=== PATIENT | female | born 1950 | race Caucasian/White ===

== ENCOUNTER 2023-06-20 10:15 | Outpatient (RCR) | payer MEDICARE, BC, SELFPAY | END 2023-10-18 23:59 | disposition home or self-care (01) | PROVIDERS: PCP Family Medicine; Visit Provider Family Medicine | DX: M17.0 Bilateral primary osteoarthritis of knee (principal); M77.8 Other enthesopathies, not elsewhere classified; M25.512 Pain in left shoulder; M25.561 Pain in right knee; M25.562 Pain in left knee; M62.81 Muscle weakness (generalized); Z51.89 Encounter for other specified aftercare | CPT/HCPCS: 97110; 97140; 97161 ==

== ENCOUNTER 2023-10-06 09:03 | Outpatient (CLI) | payer MEDICARE, SELFPAY | END 2023-10-06 09:04 | disposition home or self-care (01) | LOC: NFLDREF 10-23 11:45 | PROVIDERS: PCP Family Medicine; Referring Provider Family Medicine; Visit Provider Family Medicine | DX: N39.0 Urinary tract infection, site not specified (principal); N30.00 Acute cystitis without hematuria; K59.00 Constipation, unspecified | CPT/HCPCS: 87086; 87186 ==

== ENCOUNTER 2023-12-17 08:50 | Outpatient (CLI) | payer MEDICARE, BC, SELFPAY | END 2023-12-17 08:51 | disposition home or self-care (01) | LOC: CT 08:51 | PROVIDERS: PCP Family Medicine; Visit Provider Orthopaedic Surgery Sports Medicine | DX: M17.11 Unilateral primary osteoarthritis, right knee (principal); Z01.818 Encounter for other preprocedural examination | CPT/HCPCS: 73700 ==

== ENCOUNTER 2024-01-26 17:02 | Emergency (ER) | payer MEDICARE, BC, SELFPAY ==
[2024-01-26 17:10] VITALS: BP 159/77; PULSE 79; RESP 18; TEMP 36.8; O2SAT 98; BMI 24.2
[2024-01-26 17:32] LABS: Appearance Urine Clear (Clear); Bilirubin Urine Negative (Negative); Blood Urine Trace-lysed (Negative); Color Urine Yellow (Yellow); Glucose Urine Negative (Negative); Ketones Urine Negative (Negative); Leukocyte Esterase Urine 1+ (Negative); Nitrite Urine Negative (Negative); Protein Urine Negative (Negative); Urobilinogen Urine 0.2 (0.2-1.0); pH Urine 6.5 (5.0-8.5)
[2024-01-26 17:35] LABS: RBC Urine 0-2 (0-2); WBC Urine 25-50 (0-5)
--- NOTE | 2024-01-26 17:40 | ED.GENADULT ---
HPI - General Adult General Chief complaint: Abdominal Pain Stated complaint: UTI since September, really hard right now Time Seen by Provider: 01/26/24 17:17 Source: patient Mode of arrival: ambulatory Limitations: no limitations History of Present Illness HPI narrative: 73-year-old female coming in today complaining of vaginal burning of suprapubic pain associated with chronic UTI. Patient states that she has been dealing with a UTI since September. She has been worked up by Urology, had a CT urogram that showed thickening of the bladder wall and a cystoscopy which showed cystitis and couple of ulcers inside the bladder. She has been treated with multiple antibiotics, most recently she is on daily Keflex. Last night the pain became so bad that she could not sleep she came in today for evaluation. She denies any fevers or chills. She states that the vaginal area is very itchy and uncomfortable. She has tried estrogen cream in the past but cannot tolerate it because it causes significant burning. No nausea or vomiting. She does have constipation on and off and when she becomes constipated her pain does worsen. She does take MiraLax as needed. She had a loose bowel movement today and felt that some of her symptoms did resolve but she still fairly uncomfortable. She is also concerned because she feels like she has to urinate every 15 minutes. She is concerned that the antibiotic she is taking is not sufficient. Related Data Home Medications ?Medication ?Instructions ?Recorded ?Confirmed atorvastatin 20 mg tablet 20 mg PO QDAY 04/27/22 10/06/23 cholecalciferol (vitamin D3) PO 03/09/23 10/06/23 multivitamin 1 tab PO QAM 03/09/23 10/06/23 alendronate 70 mg tablet 70 mg PO 09/11/23 10/06/23 aspirin 81 mg tablet,delayed 81 mg PO QDAY 09/11/23 10/06/23 release lisinopril 20 mg tablet 20 mg PO DAILY 09/11/23 10/06/23 omeprazole 40 mg capsule,delayed 40 mg PO DAILY 09/11/23 10/06/23 release desonide 0.05 % topical cream 1 applic topical BID 10/06/23 10/06/23 fluocinonide 0.05 % topical topical 10/06/23 10/06/23 solution [id number] tab PO 10/06/23 10/06/23 fumarate 18 mg-folic acid 400 mcg tablet (One-A-Day Women's Complete) omeprazole 40 mg capsule,delayed 40 mg PO QDAY 10/06/23 10/06/23 release Previous Rx's ?Medication ?Instructions ?Recorded nitrofurantoin 100 mg PO Q12H 5 days #9 caps 01/26/24 monohydrate/macrocrystals 100 mg capsule (Macrobid) Allergies Allergy/AdvReac Type Severity Reaction Status Date / Time No Known Drug Allergies Allergy Verified 01/26/24 17:10 Review of Systems Status of ROS: Reports: 10 or more systems reviewed and unremarkable except as noted in History and below [facility] Surgical History Previous section ?Z98.891 - History of uterine scar from previous surgery (ICD-10) History of open reduction and internal fixation (ORIF) procedure (~1975) ?Z98.890 - Other specified postprocedural states (ICD-10) S/P ORIF (open reduction internal fixation) fracture ?Z98.890 - Other specified postprocedural states (ICD-10) ?Z87.81 - Personal history of (healed) traumatic fracture (ICD-10) Social History Narrative: -Jonnie Smoking Status: Never smoker Do you use any of these nicotine containing products: None Second hand tobacco smoke exposure: No Non-prescribed substance use: denies use Exam Narrative: Exam Narrative: Well-nourished well-developed patient in no acute distress. Alert and oriented. Answers questions appropriately. Mood and affect are appropriate. Thoughts are goal oriented and rational. No tangential or magical thinking noted. Patient speaks in full sentences without needing to catch her breath. Patient does not appear ill or toxic, she is well groomed. HEENT: Normocephalic atraumatic. Pupils are equally round reactive to light. Extraocular muscles are intact. Conjunctivae are moist without any icterus noted. Moist mucous membranes. Cardiovascular: Heart is regular rate and rhythm S1 and S2 are present without any murmurs. Lungs: Clear to auscultation bilaterally no wheezes rhonchi or rales are appreciated. Patient takes deep breaths without any discomfort. Abdomen: Soft and nontender nondistended with normal bowel sounds. No guarding or rebound. No masses or organomegaly appreciated. : Normal female external genitalia. She does not have evidence of atrophic vaginitis or significant dryness noted. There is no vaginal discharge noted. With no swelling or erythema of the perineum. Const: Vital Signs, click to edit/add: Vital Signs - 24 hr 01/26/24 17:10 Temperature 98.3 F Pulse Rate [Pulse Oximeter] 79 Respiratory Rate 18 Blood Pressure [Ri ght Upper Arm] 159/77 H Pulse Oximetry 98 Oxygen Delivery Me thod Room Air Course Course ED Course: CBC is unremarkable. Urinalysis she shows 25-50 wbc's and 1+ leukocyte esterase. TRENT is negative for Trichomonas, yeast or clue cells. Sodium is a little low of 131. Chemistries are otherwise unremarkable. Normal CRP Vital Signs Vital signs: Initial Vital Signs Temperature 98.3 F 01/26/24 17:10 Temperature Source Temporal Artery Scan 01/26/24 17:10 Pulse Rate 79 01/26/24 17:10 Pulse Rhythm Regular 01/26/24 17:10 Respiratory Rate 18 01/26/24 17:10 Blood Pressure 159/77 H 01/26/24 17:10 Blood Pressure Mean 104 01/26/24 17:10 Blood Pressure Position Sitting 01/26/24 17:10 Pulse Oximetry 98 01/26/24 17:10 Oxygen Delivery Method Room Air 01/26/24 17:10 Vital Signs Temperature 98.3 F 01/26/24 17:10 Pulse Rate 79 01/26/24 17:10 Respiratory Rate 18 01/26/24 17:10 Blood Pressure 159/77 H 01/26/24 17:10 Pulse Oximetry 98 01/26/24 17:10 Oxygen Delivery Method Room Air 01/26/24 17:10 Temperature 98.3 F 01/26/24 17:10 Pulse Rate 79 01/26/24 17:10 Respiratory Rate 18 01/26/24 17:10 Blood Pressure 159/77 H 01/26/24 17:10 Pulse Oximetry 98 01/26/24 17:10 Oxygen Delivery Method Room Air 01/26/24 17:10 Medical Decision Making MDM Narrative Medical decision making narrative: 73-year-old female with chronic cystitis coming in today with an episode of increased discomfort and worsening urinary frequency. UA is abnormal. At this time going to put her on Macrobid twice a day for 5 days, continue Keflex as is. Follow up with Urology team next week. Lab Data Lab results reviewed: Yes I reviewed the patient's lab results Labs: Lab Results 01/26/24 01/26/24 01/26/24 Range/Units 17:21 17:50 18:10 WBC 6.16 (4.50-11.00) K/uL RBC 4.63 (4.00-5.20) m/uL Hgb 13.4 (12.0-16.0) gm/dL Hct 40.8 (33.0-51.0) % MCV 88 (80-100) fL MCH 29 (26-34) pg MCHC 33 (32-36) gm/dL RDW Coeff of Jessie 12.3 (11.5-15.5) % Plt Count 298 (140-440) K/uL Neut % (Auto) 63.2 (42.0-72.0) % Lymph % (Auto) 22.4 (20-44) % [place] % (Auto) 10.1 (0.0-11.0) % Eos % (Auto) 3.6 (0.0-7.0) % Baso % (Auto) 0.5 (0.0-3.0) % Neut # (Auto) 3.90 (1.7-7.0) K/uL Lymph # (Auto) 1.38 (0.90-2.90) K/uL [place] # (Auto) 0.60 (0.00-0.90) K/UL Eos # (Auto) 0.22 (0.00-0.50) K/uL Baso # (Auto) 0.03 (0.00-0.30) K/uL Abs Immat Gran (auto) 0.01 (0.00-0.30) K/uL Imm/Tot Granulo (auto) 0.2 % Sodium 131 L (135-149) mmol/L Potassium 4.7 (3.6-5.1) mmol/L Chloride 96 (96-114) mmol/L Carbon Dioxide 30 (20-32) mmol/L Anion Gap 5 L (7-15) mEq/L BUN 19 (7-30) mg/dL Creatinine 0.7 (0.5-1.5) mg/dL Estimated Creat Clear 35.99 Estimated GFR 91 ml/min Glucose 104 (60-115) mg/dL Calcium 9.4 (8.4-10.6) mg/dL C-Reactive Protein 0.5 (0.5-1.0) mg/dL Urine Color Yellow (Yellow) Urine Appearance Clear (Clear) Urine pH 6.5 (5.0-8.5) Ur Specific [place] 1.010 (1.000-1.030) Urine Protein Negative (Negative) Urine Glucose (UA) Negative (Negative) Urine Ketones Negative (Negative) Urine Blood Trace-lysed A (Negative) Urine Nitrite Negative (Negative) Urine Bilirubin Negative (Negative) Urine Urobilinogen 0.2 (0.2-1.0) Ur Leukocyte Esterase 1+ A (Negative) Urine RBC 0-2 (0-2) Urine WBC 25-50 A (0-5) Ur Squamous Epith Cells None (None-Few) Urine Bacteria None (None) Vaginal Trichomonas (None Seen) Vaginal Yeast (None Seen) Vaginal Clue Cells (None Seen) Vaginal Bacterial Vaginosis Negative (Negative) Vaginal Cecilia species NOT DETECTED (No Detected) Vag C. glabrata/krusei NOT DETECTED (No Detected) Vag T. vaginalis NOT DETECTED (No Detected) 01/26/24 Range/Units 18:15 WBC (4.50-11.00) K/uL RBC (4.00-5.20) m/uL Hgb (12.0-16.0) gm/dL Hct (33.0-51.0) % MCV (80-100) fL MCH (26-34) pg MCHC (32-36) gm/dL RDW Coeff of Jessie (11.5-15.5) % Plt Count (140-440) K/uL Neut % (Auto) (42.0-72.0) % Lymph % (Auto) (20-44) % [place] % (Auto) (0.0-11.0) % Eos % (Auto) (0.0-7.0) % Baso % (Auto) (0.0-3.0) % Neut # (Auto) (1.7-7.0) K/uL Lymph # (Auto) (0.90-2.90) K/uL [place] # (Auto) (0.00-0.90) K/UL Eos # (Auto) (0.00-0.50) K/uL Baso # (Auto) (0.00-0.30) K/uL Abs Immat Gran (auto) (0.00-0.30) K/uL Imm/Tot Granulo (auto) % Sodium (135-149) mmol/L Potassium (3.6-5.1) mmol/L Chloride (96-114) mmol/L Carbon Dioxide (20-32) mmol/L Anion Gap (7-15) mEq/L BUN (7-30) mg/dL Creatinine (0.5-1.5) mg/dL Estimated Creat Clear Estimated GFR ml/min Glucose (60-115) mg/dL Calcium (8.4-10.6) mg/dL C-Reactive Protein (0.5-1.0) mg/dL Urine Color (Yellow) Urine Appearance (Clear) Urine pH (5.0-8.5) Ur Specific [place] (1.000-1.030) Urine Protein (Negative) Urine Glucose (UA) (Negative) Urine Ketones (Negative) Urine Blood (Negative) Urine Nitrite (Negative) Urine Bilirubin (Negative) Urine Urobilinogen (0.2-1.0) Ur Leukocyte Esterase (Negative) Urine RBC (0-2) Urine WBC (0-5) Ur Squamous Epith Cells (None-Few) Urine Bacteria (None) Vaginal Trichomonas No Trichomonas Seen (None Seen) Vaginal Yeast No Yeast Seen (None Seen) Vaginal Clue Cells No Clue Cells Seen (None Seen) Vaginal Bacterial Vaginosis (Negative) Vaginal Cecilia species (No Detected) Vag C. glabrata/krusei (No Detected) Vag T. vaginalis (No Detected) Discharge Plan Discharge Clinical Impression: Chronic cystitis, Acute UTI Patient Disposition: Home, Self-Care Condition: Stable Additional Instructions: Given your worsening symptoms who had treat with a different antibiotic twice a day for the next 5 days to see if this helps. Continue Keflex as you are currently taking it. You do need to follow-up with your primary care team or urologist next week. While reading through your medical paperwork I did notice that you had an abnormality noted of your lungs that was noted on the CT scan you had of the abdomen. Just wanted make sure that you bring this up to your primary care provider to see if you need to have any follow-up regarding this. Return to the ER if you develop vomiting, weakness or fever. Prescriptions: New nitrofurantoin monohyd/m-cryst [Macrobid] 100 mg capsule 100 mg PO Q12H 5 Days Qty: 9 0RF Rx Instructions: must administer with a meal/food No Action lisinopril 20 mg tablet 20 mg PO DAILY omeprazole 40 mg capsule,delayed release(DR/EC) 40 mg PO DAILY alendronate 70 mg tablet 70 mg PO aspirin 81 mg tablet,delayed release (DR/EC) 81 mg PO QDAY desonide 0.05 % cream 1 applic topical BID fluocinonide 0.05 % solution topical omeprazole 40 mg capsule,delayed release(DR/EC) 40 mg PO QDAY One-A-Day Women's Complete 18 mg iron- 400 mcg tablet PO atorvastatin 20 mg tablet 20 mg PO QDAY multivitamin Tablet 1 tab PO QAM cholecalciferol (vitamin D3) PO Follow Up/Referrals: Agnes Tejeda MD [Primary Care Provider] - Stand Alone Forms: Real Time [facility] Info Instructions
--- OUTSIDE RECORDS SUMMARY | 2024-01-26 17:45 | XMS_ITS | Clinical Summary ---
Author Organization [employer] Address [place], [place] [address] Care Team Providers Care Eyeglass Lens Grinder Name Role Phone MottSangeethaNathanruben Blanchard [phone] Agnes Tejeda MD Primary Care Provider Allergies No known active allergies Medications Medication Sig Dispensed Refills Start Date End Date Status aspirin (ECOTRIN) 81 mg enteric coated tablet Take 1 tablet by mouth once daily with a meal. 100 tablet PRN 4 Active gehxkgmi-rqvq-OH-c alcium-mins (ONE-A-DAY WOMEN'S PETITES) 9 mg iron-200 mcg tab Take 2 tablets by mouth once daily. 0 6 Active desonide 0.05% (TRIDESILON 0.05% CREAM) 0.05 % creamIndications:E czema, unspecified type Apply topically to affected area(s) 2 times daily. 1 Tube 7 Active cholecalciferol (Vitamin D) 1,000 unit tablet Take 1,000 units by mouth once daily. Active fluocinonide 0.05 TOPICAL (LIDEX) 0.05 % external solutionIndication s:Scalp psoriasis Apply topically to affected area(s) two times daily. Use up to 2 weeks at a time. 60 mL 2 3 Active lisinopriL (PRINIVIL; ZESTRIL) 20 mg tabletIndications: HTN (hypertension) Take 1 Tablet (20 mg) by mouth once daily. 90 Tablet 3 3 Active durable medical equipment (DME)Indications:H TN (hypertension) Automated home BP cuff. Length of need 99 1 Each 3 Active omeprazole (PRILOSEC) 40 mg Delayed-Release capsuleIndications :Dysphagia, unspecified type,Esophagitis,H iatal hernia TAKE ONE CAPSULE BY MOUTH ONCE DAILY. TAKE 30-60 MINUTES BEFORE A MEAL. 90 Capsule 3 4 Active ketoconazole 2 % creamIndications:I ntertrigo Apply topically to affected area(s) two times daily. 60 g 4 Active alendronate (FOSAMAX) 70 mg tabletIndications: Age-related osteoporosis without current pathological fracture TAKE 1 TABLET BY MOUTH ONCE A WEEK IN THE MORNING. - TAKE ON AN EMPTY STOMACH WITH FULL GLASS OF WATER. DO NOT LIE DOWN FOR 1 HOUR. 4 Tablet 4 Active atorvastatin (LIPITOR) 20 mg tabletIndications: Hyperlipidemia, unspecified hyperlipidemia type TAKE ONE TABLET BY MOUTH EVERY DAY 90 Tablet 3 4 Active cephalexin (KEFLEX) 500 mg capsule Take 500 mg by mouth. Take one capsule once daily for 45 days 4 Active atorvastatin (Lipitor) 20 mg tabletIndications: Hyperlipidemia, unspecified hyperlipidemia type Take 1 Tablet (20 mg) by mouth once daily. 90 Tablet 3 3 01/21/20 24 Discontinued alendronate (FOSAMAX) 70 mg tabletIndications: Age-related osteoporosis without current pathological fracture Take 1 Tablet (70 mg) by mouth once a week in the morning. Take on empty stomach with full glass of water. Do not lie down for 1 hr. 12 Tablet 3 3 01/15/20 24 Discontinued estradioL (ESTRACE) 0.01% (0.1 mg/g) vaginal creamIndications:R ecurrent cystitis,Post-emy pausal atrophic vaginitis Insert 1 g into the vagina at bedtime for 14 days. Then use at bedtime 2 days per week. 42.5 g 1 4 01/21/20 24 Discontinued(*Pa tient states no longer taking) Active Problems Problem Noted Date Diagnosed Date Gastroesophageal reflux dise ase with esophagitis without hemorrhage 06/13/2022 Overview (06/13/2022): EGD 05/2021 esophagitis Eczema 02/12/2013 HTN (hypertension) 11/08/2011 Screen for colon cancer 12/08/2009 Overview (11/19/2019): Colonoscopy 11/2009 normal repeat in 10 years Colonoscopy 10/2019 normal, repeat in 10 years Other and unspecified hyperlipidemia 10/10/2006 Resolved Problems Problem Noted Date Diagnosed Date Resolved Date Closed fibular fracture 12/28/201112/29 Encounters Date Type Department Care Team Description 01/23/2024 Travel 01/21/2024 8:15 AM CDT Preop Visit [facility] [address] [place] [address] Agnes Tejeda MD [facility] Exam [facility] 01/21/2024 Travel 01/18/2024 Refill [facility] [address] [place] [address] Agnes Tejeda MD Refill Request (Atorvastatin) 01/12/2024 Refill [facility] [address] [place] [address] Agnes Tejeda MD Refill Request (Alendronate) 01/04/2024 Telephone [facility] [address] [place] [address] Agnes Tejeda MD Follow Up 01/01/2024 Orders Only [facility] Scanner 1 scan: (1-Ord) [place] [facility], CYSTOSCOPY, 01/01/2024 01/01/2024 Orders Only [facility] Scanner 1 scan: (1-Ord) UNKNOWN FACILITY, URINALYSIS, 01/01/2024 01/01/2024 Orders Only [facility] Scanner 1 scan: (1-Ord) [place] [facility], URINE CULTURE, 01/01/2024 01/01/2024 Telephone [facility] [address] [place] [address] Agnes Tejeda MD Appointment (preop) 11/28/2023 9:05 AM CDT Office Visit [facility] [address] [place] [address] Alison Quintana PA Follow Up (Urinary problems); Derm Problem (redness on abdomen/right groin) 11/28/2023 Travel 11/21/2023 9:05 AM CDT Office Visit [facility] [address] [place] [address] Alison Quintana PA Follow Up (urinary problems- sleeping at night has been difficult due to pain in lower abdomen/ pelvic area ) 11/20/2023 Travel 11/20/2023 Telephone [facility] [address] [facility] [place] [address] Alison Quintana PA Medication Management (UTI Medication not working.) 11/08/2023 Telephone [facility] [address] [place] [address] Agnes Tejeda MD 11/07/2023 3:00 PM CDT Ancillary Procedure [address] [address] 11/07/2023 2:45 PM CDT Orders Only [address] [address] Lab, [place] 11/07/2023 Travel 11/02/2023 9:05 AM CDT Office Visit [address] [address] Alison Quintana PA Follow Up (Vaginal concerns - pressure- bowel movement will help relieve pressure, still having urgency ) 11/02/2023 Travel 10/31/2023 Travel 10/26/2023 Telephone [facility] [address] [place] [address] Alison Quintana PA from Last 3 Months Immunizations Name Administration Dates Next Due COVID-19 VACCINE SPIKEVAX (M ODERNA 50MCG/0.5ML) 12YO+ PFS 02/12/2023 COVID-19 vaccine (Moderna 50mcg/0.5mL) 12YO+ BIVALENT PF, MDV 01/25/2022 Influenza Virus, Unspecified 01/29/2019 Influenza, High-dose Inactivated 03/05/2018,02/28,05/17/2016 Influenza, IIV3 (Age >=3 years) 02/22/2012,02/07,02/08/2010 Influenza, IIV4 01/30/2013 Influenza, Inactivated AIIV4 (Age 65+ Years) Preserv Free 02/02/2023,01/25/2022,01/19/2021,2019 Influenza, Inactivated IIV3 (Age 65+ Years) Preserv Free 01/18/2024 Pneumococcal Poly,23-Valent (Pneumovax) 11/29/2016 Pneumococcal conj 13-Valent (Prevnar 13) 11/23/2015 Td (Age >=7 Years) 04/29/2003 Tdap 08/14/2022,11/08/2011 Zoster (Shingrix-RZV, recombinant) 06/25/2019, Zoster (Zostavax-ZVL, live) 11/01/2010 Family History Medical History Relation Name Comments Cirrhosis Brother Heart Disease Brother pacemaker Heart Disease Father OR Hypertension Father Other Maternal Aunt Alzheimer's de mentia Arthritis Mother Hypertension Mother Stroke Mother Thyroid Disease Mother Diabetes Other 1 Grandfather Cancer-breast Other 2 cousin diagnos ed at 40 Cancer-breast Paternal Aunt x2 Cancer-ovarian No Family History Relation Name Status Comments Brother Father (Age 62) Maternal Aunt Mother (Age 91) stroke Other 1 Other 2 Paternal Aunt Social History Tobacco Use Types Packs/Day Years Used Date Smoking Tobacco: Never Smokeless Tobacco: Never Tobacco Cessation:Counseling Given: No Alcohol Use Standard Drinks/Week Comments Yes 0 (1 standard drink = 0.6 oz pur e alcohol) very seldom PHQ-2 Answer Date Recorded PHQ-2 TOTAL SCORE 0 02/19/2023 Social Connections Answer Date Recorded Frequency of Communication with Friends and Fami ly 0 02/19/2023 Financial Resource Strain Answer Date R ecorded Difficulty of Paying Living Expenses 3 02/19/2023 Difficulty of Paying Living Expenses Not on file 02/19/2023 Food Insecurity Answer Date Recorded Worried About Running Out of Food in the Last Ye ar 1 02/19/2023 Transportation Needs Answer Date Record ed Lack of Transportation (Medical) 1 02/19/2023 Housing Stability Answer Date Recorded Unable to Pay for Housing in the Last Year 1 02/19/2023 Sex and Gender Information Value Date Recorded Sex Assigned at Not on file Gender Identity Not on file Sexual Orientation Not on file Obstetrics History Para Term AB IAB SAB Ectopic Multiple Livin g Live Births 3 2 2 1 1 0 0 Date Outcome GA Total Labor Labor/2nd/3rd Weight Sex Type Anes PTL Keerthi A1 A5 Name Clin SAB Term Term Last Filed Vital Signs Vital Sign Reading Time Taken Comments Blood Pressure 121/83 01/21/2024 8:11 AM CDT Pulse 77 01/21/2024 8:11 AM CDT Temperature 36.4 ??C (97.5 ??F) 08/02/2017 2:49 PM CD T Respiratory Rate 14 06/08/2022 9:45 AM [employer]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 Oxygen Saturation 98% 01/21/2024 8:11 AM CDT Inhaled Oxygen Concentration - - Weight 56.3 kg (124 lb 3.2 oz) 01/21/2024 8:11 A M CDT Height 151.5 cm (4' 11.65) 01/21/2024 8:11 AM C DT Body Mass Index 24.54 01/21/2024 8:11 AM CDT Plan of Treatment Upcoming Encounters Date Type Department Care Team (Late st Contact Info) Description 01/28/2024 10:40 AM CDT Ancillary Procedure [facility] [address] [place] [address] 02/21/2024 8:00 AM CDT Office Visit [facility] [address] [place] [address] Agnes Tejeda MD [address] [place] [address] Health Maintenance Due Date Last Done Comments Mammogram for age 45-75 01/25/2024 01/25/20, 01/20/2022, 01/19/2021, Additional history exists Depression screening for age 12+ 02/20/2024 02/19/2023, 01/20/2022, 01/20/2022, Additional history exists Medicare Wellness for age 65+ 02/20/2024, 01/20/2022, 01/19/2021, Additional history exists BMI (ht and wt on same day) for age 18+ 01/20/2025 01/21/2024, 02/19/2023, 05/29/2022, Additional history exists Lipids for age 45-75 01/20/2029 01/21/2024, 01/24/2023, 01/20/2022, Additional history exists Colonoscopy through age 75 11/18/202911/18, 11/19/2019, 12/08/2009, Additional history exists Tetanus booster 08/14/2032 08/14/2022, 10/28, 04/29/2003 Hepatitis C screening for ag e 18-79 Completed 04/29/2003 Pneumococcal series for age 65+ Completed 7, 11/23/2015 Zoster (shingles) series for age 50+ Completed 06/25/2019, 01/29/2019, 11/01/2010 DEXA/DXA scan for age 65+ Completed 2021, 11/30/2016, 11/12/2012 Tdap Completed 08/14/2022, 11/08/2011 COVID-19 vaccine series Completed 01/10/20 24, 02/12/2023, 08/14/2022, Additional history exists Influenza for age 65+ Completed 01/18/2024 , 02/02/2023, 01/25/2022, Additional history exists Procedures Procedure Name Priority Date/Time Associated Diagnosis Comments EKG 12 LEAD UNIT PERFORMED Routine 01/21/2024 10:40 AM CDT Preop examination ID READING EKG - NO CHARGE, COMP ONLY Routine 01/21/2024 10:39 AM CDT Preop examination HEMOGLOBIN Routine 01/21/2024 9:33 AM CDT Preop examination LIPID PANEL W REFLEX MEASURED LDL Routine 01/21/2024 9:33 AM CDT Hyperlipidemia, unspecified hyperlipidemia type BASIC METABOLIC PANEL Routine 01/21/2024 9:33 AM CDT HTN (hypertension) SCAN-LABORATORY REPORT 01/01/2024 12:00 AM CDT SCAN-PATHOLOGY REPORT 01/01/2024 12:00 AM CDT SCAN-OPERATIVE/PROC EDURE REPORT 01/01/2024 12:[address] ABDOMEN PELVIS UROGRAM WWO LUISITO 11/07/2023 3:45 PM CDT Urgency incontinence Urinary frequency Microscopic hematuria CREATININE,ISTAT Routine 11/07/2023 3:05 PM CDT Observation or evaluation for suspected condition TRICHOMONAS, JENNIE, AND BACTERIAL VAGINOSIS BY JENNIFER Routine 11/02/2023 9:40 AM CDT Urgency incontinence Urinary frequency Vaginal itching URINALYSIS MICROSCOPIC Routine 11/02/2023 9:07 AM CDT Urgency incontinence UA W/ SEDIMENT EXAM REFLEXED PER CRITERIA Routine 11/02/2023 9:07 AM CDT Urgency incontinence XR MAMMO KAYLENE BILAT SCREEN Routine 01/24/2023 8:03 AM CDT Visit for screening mammogram XR DXA BONE DENSITY 2 SITES AXIAL Routine 01/24/2022 9:57 AM CDT Menopause COLONOSCOPY 11/19/2019 7:34 AM CDT ANTI HCV Routine 04/29/2003 10:14 AM [employer]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 from Last 3 Months or Most Recently Relevant to Health Maintenance Results * EKG 12 LEAD UNIT PERFORMED (01/21/2024 10:40 AM CDT) Agnes Tejeda MD EKG ORD * ID READING EKG - NO CHARGE, COMP ONLY (01/21/2024 10:39 AM CDT) Agnes Teejda MD PB - PROVIDER R EADINGS * (ABNORMAL) LIPID PANEL W REFLEX MEASURED LDL (01/21/2024 9:33 AM CDT) CHOLESTEROL, TOTAL 206(H) <200 mg/dL [facility] HDL CHOLESTEROL 71 > OR = 50 mg/dL [facility] TRIGLYCERIDES 141 <150 mg/dL [facility] LDL-CHOLESTEROL 110(H) mg/dL (calc) [facility] Comment: Reference range: <100 Desirable range <100 mg/dL for primary prevention; ?? <70 mg/dL for patients with CHD or diabetic patients with > or = 2 CHD risk factors. LDL-C is now calculated using the Marquise calculation, which is a validated novel method providing better accuracy than the Friedewald equation in the estimation of LDL-C. Evert SS et al. MORIAH. 2013;310(19): 3779-1268 (http://education.Dish.fm/faq/OSE830) CHOL/HDLC RATIO 2.9 <5.0 (calc) [facility] NON HDL CHOLESTEROL 135(H) <130 mg/dL (calc) [facility] Comment: For patients with diabetes plus 1 major ASCVD risk factor, treating to a non-HDL-C goal of <100 mg/dL (LDL-C of <70 mg/dL) is considered a therapeutic option. Blood BLOOD SPECIMEN / Unknown 01/21/2024 9:33 AM CDT 01/21/2024 9:34 AM CDT Agnes Tejeda MD CHEMISTRY [employer] [facility] [address] [place] [address], [facility] [address] [place] [address] * HEMOGLOBIN (01/21/2024 9:33 AM CDT) Pathologist [facility] HEMOGLOBIN 14.8 11.7 - 15.5 g/dL [facility] Blood BLOOD SPECIMEN / Unknown 01/21/2024 9:33 AM CDT 01/21/2024 9:34 AM CDT Agnes Tejeda MD HEMATOLOGY Performing Organization Address City/[facility]/ZIP Co de Phone Number [email or web address] [email or web address] [facility] [address] [place] [address], [place] [phone] [facility] [address] [place] [address] * BASIC METABOLIC PANEL (01/21/2024 9:33 AM CDT) GLUCOSE 89 65 - 99 mg/dL [facility] Comment: ? Fasting reference interval UREA NITROGEN (BUN) 19 7 - 25 mg/dL [facility] CREATININE 0.71 0.60 - 1.00 mg/dL [facility] EGFR 90 > OR = 60 mL/min/1. 73m2 [facility] BUN/CREATININE RATIO SEE NOTE: 6 - 22 (calc) [facility] Comment: ?? Not Reported: BUN and Creatinine are within ?? reference range. ? SODIUM 138 135 - 146 mmol/L [facility] POTASSIUM 4.7 3.5 - 5.3 mmol/L [facility] CHLORIDE 100 98 - 110 mmol/L [facility] CARBON DIOXIDE 23 20 - 32 mmol/L [facility] ELECTROLYTE BALANCE 15 7 - 17 mmol/L (calc) [facility] CALCIUM 9.8 8.6 - 10.4 mg/dL [facility] Blood BLOOD SPECIMEN / Unknown 01/21/2024 9:33 AM CDT 01/21/2024 9:34 AM CDT Agnes Tejeda MD CHEMISTRY [employer] [facility] [address] [place] [address], [place] [phone] [facility] [address] [place] [address] * SCAN-OPERATIVE/PROCEDURE REPORT (01/01/2024 12:00 AM CDT) Scanner OTHER * SCAN-PATHOLOGY REPORT (01/01/2024 12:00 AM CDT) Scanner OTHER * SCAN-LABORATORY REPORT (01/01/2024 12:00 AM CDT) Scanner OTHER * CT ABDOMEN PELVIS UROGRAM WWO (11/07/2023 3:45 PM CDT) Anatomical Region Laterality Modality Abdomen, Pelvis, KIDNEYS, BLADDER Computed Tomography 11/08/2023 2:46 AM CDT Impressions 11/08/2023 2:46 AM CDT 1. Irregular urinary bladder wall thickening, nonspecific but may be seen the setting of cystitis. 2. Moderate pelvocaliectasis versus extrarenal pelvis bilaterally. 3. Left nonobstructive nephrolithiasis. 4. Right lower lobe patchy ground-glass opacities, likely representing infectious/inflammatory process. Please note that all CT scans at this facility use dose modulation, iterative reconstruction, and/or weight-based dosing when appropriate to reduce radiation dose to as low as reasonably achievable. Dictated by Donell Cote MD @ 11/08/2023 2:46:20 AM (Electronically Signed) Narrative 11/08/2023 2:46 AM CDT For Patients: ??As a result of the 21st Century Cures Act, medical imaging exams and procedure reports are released immediately into your electronic medical record. ??You may view this report before your referring provider. ??If you have questions, please contact your health care provider. INDICATION: Hematuria. TECHNIQUE: CT abdomen and pelvis urogram without and with 100 cc Omnipaque 350 IV contrast. Contrast images were obtained in the nephrographic and delayed phases. COMPARISON: None. FINDINGS: Kidneys: The unenhanced images demonstrate small nonobstructive calculi in the left renal lower pole. Left renal cortical scarring with calcifications. Normal uptake and excretion of IV contrast. No masses. Moderate pelvocaliectasis versus extrarenal pelvis bilaterally. No contrast opacification of the ureters. Urinary Bladder: Irregular wall thickening of the urinary bladder. No contrast opacification of the urinary bladder. Other: Right lower lobe patchy ground-glass opacities. Bibasilar atelectasis. Right middle lobe calcified granuloma. Coronary artery calcifications. Liver, gallbladder, spleen, pancreas, and bilateral adrenal glands are unremarkable. Small hiatal hernia. GI tract is normal in caliber. No evidence of obstruction. Normal appendix. No free air or significant free fluid. No adenopathy. No abdominal aortic aneurysm. Calcified uterine fibroid. Degenerative changes of the spine with grade 1 anterolisthesis L4 on L5. Procedure Note Donell Cote MD - 11/08/2023 For Patients: As a result of the Cures Act, medical imagingexams and procedure reports are released immediately into your electronicmedical record. You may view this report before your referring provider.If you have questions, please contact your health care provider. INDICATION: Hematuria. TECHNIQUE: CT abdomen and pelvis urogram without and with 100 cc Omnipaque 350 IVcontrast. Contrast images were obtained in the nephrographic and delayedphases. COMPARISON: None. FINDINGS: Kidneys: The unenhanced images demonstrate small nonobstructive calculi inthe left renal lower pole. Left renal cortical scarring withcalcifications. Normal uptake and excretion of IV contrast. No masses.Moderate pelvocaliectasis versus extrarenal pelvis bilaterally. Nocontrast opacification of the ureters. Urinary Bladder: Irregular wall thickening of the urinary bladder. Nocontrast opacification of the urinary bladder. Other: Right lower lobe patchy ground-glass opacities. Bibasilaratelectasis. Right middle lobe calcified granuloma. Coronary arterycalcifications. Liver, gallbladder, spleen, pancreas, and bilateraladrenal glands are unremarkable. Small hiatal hernia. GI tract is normalin caliber. No evidence of obstruction. Normal appendix. No free air orsignificant free fluid. No adenopathy. No abdominal aortic aneurysm.Calcified uterine fibroid. Degenerative changes of the spine with grade 1anterolisthesis L4 on L5. IMPRESSION: 1. Irregular urinary bladder wall thickening, nonspecific but may be seenthe setting of cystitis. 2. Moderate pelvocaliectasis versus extrarenal pelvis bilaterally. 3. Left nonobstructive nephrolithiasis. 4. Right lower lobe patchy ground-glass opacities, likely representinginfectious/inflammatory process. Please note that all CT scans at this facility use dose modulation,iterative reconstruction, and/or weight-based dosing when appropriate toreduce radiation dose to as low as reasonably achievable. Dictated by Donell Cote MD @ 11/08/2023 2:46:20 AM (Electronically Signed) Alison NUNEZ CT * (ABNORMAL) CREATININE,ISTAT (11/07/2023 3:05 PM CDT) [facility] CREATININE, POCT 0.80 0.57 - 1.11 mg/dL 11/07/2023 3:07 PM CDT [facility] Comment:Caution: Patients ta rob Hydroxyurea have falsely increased iStat Creatinine results. Verify creatinine results ordering a Creatinine (64245.2) eGFR 78(L) >90 mL/min/1.7 3m2 11/07/2023 3:07 PM CDT [facility] Comment:As of 2021, eG FR is calculated by the CKD-EPI creatinine equation without race adjustment. eGFR can be influenced by muscle mass, exercise, and diet. The reported eGFR is an estimation only and is only applicable if the renal function is stable. Blood BLOOD SPECIMEN / Unknown 11/07/2023 3:05 PM CDT 11/07/2023 3:07 PM CDT Alison NUNEZ CHEMISTRY [facility] [address] [place] [address], * TRICHOMONAS, JENNIE, AND BACTERIAL VAGINOSIS BY JENNIFER (11/02/2023 9:40 AM CDT) [facility] JENNIE SPECIES Negative Negative 9:53 PM CDT [facility] JENNIE GLABRATA Negative Negative 11/02/2023 9:53 PM CDT [facility] TRICHOMONAS VVA Negative Negative 9:[address] [facility] BACTERIAL VAGINOSIS Negative Negative 11/02/2023 9:53 PM CDT [facility] Other VAGINAL SWAB / Unknown Non-Blood / Unknown 11/02/2023 9:40 AM CDT 11/02/2023 10:30 AM CDT Alison NUNEZ MICROBIOLOGY [facility] [address] [place] [address], [place] * (ABNORMAL) URINALYSIS MICROSCOPIC (11/02/2023 9:07 AM CDT) RBC 0-2 0-2, None Seen /HPF 11/02/2023 9:23 AM CDT [facility] WBC 11-25(A) 0-2, 3-5, None Seen /HPF 11/02/2023 9:23 AM CDT [facility] BACTERIA Few None Seen, Rare, Few Bacteria/ HPF 11/02/2023 9:23 AM CDT [facility] EPITHELIAL CELLS None Seen None Seen, Few Epi/HPF 11/02/2023 9:23 AM CDT [facility] Urine URINE SPECIMEN / Unknown Non-Blood / Unknown 11/02/2023 9:07 AM CDT 11/02/2023 9:16 AM CDT Narrative [facility] - 11/02/2023 9:23 AM CDT <1.5 ml. ??QNS for accurate microscopic exam. ??Microscopic done on unspun urine. Alison NUNEZ URINE Performing Organization Address City/[facility]/ZIP Co de Phone Number [facility] [address] [place] [address], [place] [phone] * (ABNORMAL) UA W/ SEDIMENT EXAM REFLEXED PER CRITERIA (11/02/2023 9:07 AM CDT) COLOR Yellow Yellow Color 11/02/2023 9:22 AM CDT [facility] CLARITY Clear Clear Clarity 11/02/2023 9:22 AM CDT [facility] SPECIFIC GRAVITY,URINE 1.015 1.010, 1.015, 1.020, 1.025 11/02/2023 9:22 AM CDT [facility] PH,URINE 6.0 6.0, 7.0, 8.0, 5.5, 6.5, 7.5, 8.5 11/02/2023 9:22 AM CDT [facility] UROBILINOGEN, QUALITATIVE Normal Normal EU/dl 11/02/2023 9:22 AM CDT [facility] PROTEIN, URINE Negative Negative mg/dL 11/02/2023 9:22 AM CDT [facility] GLUCOSE, URINE Negative Negative mg/dL 11/02/2023 9:22 AM CDT [facility] KETONES,URINE Negative Negative mg/dL 11/02/2023 9:22 AM CDT [facility] BILIRUBIN,URI NE Negative Negative 11/02/2023 9:22 AM CDT [facility] OCCULT BLOOD,URINE Trace(A) Negative 11/02/2023 9:22 AM CDT [facility] NITRITE Negative Negative 11/02/2023 9:22 AM CDT [facility] LEUKOCYTE ESTERASE Moderate(A) Negative 11/02/2023 9:22 AM CDT [facility] Urine URINE SPECIMEN / Unknown Non-Blood / Unknown 11/02/2023 9:07 AM CDT 11/02/2023 9:16 AM CDT Alison NUNEZ URINE [facility] [address] [place] [address], * XR MAMMO KAYLENE BILAT SCREEN (01/24/2023 8:03 AM CDT) Anatomical Region Laterality Modality BREASTS, Breast Left, Breast Right Bilateral Mammography Impressions 01/24/2023 3:44 PM CDT ??There is no radiographic evidence for malignancy. ??Recommend annual mammograms. MAMMOGRAM ASSESSMENT: ??ACR 1 Negative PATIENTS: You will also receive a letter with your examination results in an easy to read format. ??If you have questions about your results, please contact your referring provider. Narrative 01/24/2023 3:44 PM CDT For Patients: As a result of the Cures Act, medical imaging exams and procedure reports are released immediately into your electronic medical record. You may view this report before your referring provider. If you have questions, please contact your health care provider. XR MAMMO KAYLENE BILAT SCREEN [[id number]] CLINICAL HISTORY: ??This is an asymptomatic 72 y.o. patient. INDICATION FOR EXAM: Mammogram Screening. TECHNIQUE: CC & MLO views were obtained. ??This study was evaluated with the assistance of Computer-Aided Detection. Breast Tomosynthesis was used in interpretation. COMPARISON FILM: Yes 01/20/22 [employer] 01/19/21 [employer] FINDINGS: ??The breasts have scattered areas of fibroglandular density. There are no dominant masses, suspicious micro calcifications or areas of architectural distortion. Agnes Tejeda MD MAMMO * (ABNORMAL) XR DXA BONE DENSITY 2 SITES AXIAL (01/24/2022 9:57 AM CDT) Anatomical Region Laterality Modality Spine, HIPS, HIPL, HIPR Other Impressions 01/26/2022 10:30 AM CDT Osteoporosis. RECOMMENDATIONS: The National Osteoporosis Foundation recommends pharmacologic treatment for patients with T-scores of -2.5 or less, patients with prior history of fragility fractures, or patients with 10-year probability of greater than 3% at hips or greater than 20% of suffering major osteoporotic fractures. Recommend continued optimization of calcium and vitamin D intake through dietary means and/or supplementation and regular exercise. Consider pharmacologic therapy for osteoporosis. Follow-up bone density reading in 2 years if therapy initiated to assess therapeutic efficacy. Genesis Kearney PA-C [employer] [facility] 01/26/2022 Narrative 01/26/2022 10:30 AM CDT For Patients: Results are automatically released to your [employer] account once available, in compliance with federal regulations. This means that you may see your results before your provider has had a chance to review them. Please allow 2-3 business days for your provider to comment on the results. XR DXA Bone Mineral Density (BMD) EXAM LOCATION: [address] [address] PATIENT NAME: Liudmila Dudley DATE OF : 1950 EXAM DATE: 01/24/2022 REQUESTING PROVIDER: Agnes Tejeda MD GENDER AT : female HEIGHT: 5' (01/20/2022) WEIGHT: ??125 lb 9.6 oz (01/20/2022) MENOPAUSAL STATUS: Postmenopausal RACE/ETHNICITY: White RISK FACTORS: Weight < 127 lbs. and White Race CURRENT MEDICATION FOR BONE LOSS: NONE INDICATION: Menopause COMPARISON DATE(S): 2016 DXA scans are compared to prior studies for a patient only when the two (or more) studies were performed on the same scanner. It is not possible to compare data generated on one scanner to data from another because there are not standards in DXA equipment. This applies even if the two scanners are made by the same superintendent nonselling. PROCEDURE: Dual-energy x-ray absorptiometry performed with routine technique. Reporting is completed in the form of a T-score. The T-score represents the standard deviation from peak bone mass based on young healthy adult. A Z-score is used for diagnosis in premenopausal women, and for men under the age of 50. FINDINGs: RESULT LUMBAR SPINE L1-L2 BMD: 0.804 g/cm2 T-Score: - 3.0 Z-Score: - 1.0 Change from prior in 2017: ??Decrease 5.3%. RESULTS FEMUR Left femoral neck BMD: 0.788 g/cm2 T-Score: - 1.8 Z-Score: + 0.1 Change from prior in 2017: ??Decrease 5.5%. Right femoral neck BMD: 0.763 g/cm2 T-Score: - 2.0 Z-Score: - 0.1 Change from prior in 2017: ??Decrease 6.6%. Left hip BMD: 0.897 g/cm2 T-Score: - 0.9 Z-Score: + 0.8 Change from prior in 2017: ??Decrease 6.7%. Right hip BMD: 0.765 g/cm2 T-Score: - 1.9 Z-Score: - 0.2 Change from prior in 2017: ??Decrease 14.7%. WHO criteria: Normal: T-score at or above -1 SD Osteopenia: T-score between -1.1 and -2.4 SD Osteoporosis: T-score at or below -2.5 SD FRAX RISK CALCULATION (USED FOR OSTEOPENIA ONLY): 10-year probability of major osteoporotic fracture: 12.2%. 10-year probability of hip fracture: 2.5%. Agnes Tejeda MD DEXA * COLONOSCOPY (11/19/2019 7:34 AM CDT) 11/19/2019 7:34 AM CDT Narrative Transcriptions Evert Traore MD - 11/19/2019 9:00 AM CDTThis note has been archived and cannot be retrieved at this time. Evert Traore MD PROCEDURE ORD * ANTI HCV (04/29/2003 10:14 AM 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) ANTI HCV Non-reactiv e 04/29/2003 10:1 4 AM 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 Narrative 10/08/2003 2:11 AM CDT Ordered by an unspecified provider. Other Clinical Staff SEND OUTS from Last 3 Months or Most Recently Relevant to Health Maintenance Care Teams Eyeglass Lens Grinder Relationship Specialty Start Date End Date Agnes Tejeda MD [facility] [place] [address] [address] PCP - General Family Practice 12/09/[address] [place], [place] [id number] Appeals Rn 11/23/15
--- OUTSIDE RECORDS SUMMARY | 2024-01-26 17:46 | XMS_ITS | Continuity of Care Document ---
Author Organization [facility], [facility] Address [address] [place] [address] Assessment No assessment recorded. Plan of Treatment Reminders Order Date Submit Date Provider Last Modified By Organization Details Last Modified Time Details Appointments [facility] RTC 2023 11:10A M Not available Not available Not available Lab urinalys is, dipstick 2023 024 [email or web address] [facility], [address], [place], [address], 01/01/2024 11:24:15 Referral None recorded . Procedures None recorded . Surgeries None recorded . Imaging None recorded . Medication Orders cephalex in 500 mg capsule 2023 024 [facility] [address] [place] [address], [id number], 01/01/2024 11:33:04 cephalex in 500 mg capsule 2023 024 [facility] [address] [place] [address], [id number], 01/01/2024 11:33:29 Patient TargetsNo targets recorded. Patient InstructionsNo instructions recorded. Reason for Referral None Reported. Results Created Date Observation Date Name Description Value Unit Range Abnormal Flag Note LastModifiedBy Organization Detail LastModifiedTime 01/01/2001/01/2024 urina lysis , dipst ick BLOOD Large (250 RBC/uL ) Not Available [facility] [address], [place], [address], 01/01/2024 10:36:40 01/01/20 24 01/01/2024 urina lysis , dipst ick BILIRUBIN Negati ve Not Available [facility] [address], [place], [address], 01/01/2024 10:36:40 01/01/20 24 01/01/2024 urina lysis , dipst ick UROBILINOGEN 0.2 mg/dL (Norm) Not Available [facility] [address], [place], [address], 01/01/2024 10:36:40 01/01/20 24 01/01/2024 urina lysis , dipst ick KETONES Negati ve Not Available [facility] [address], [place], [address], 01/01/2024 10:36:40 01/01/20 24 01/01/2024 urina lysis , dipst ick PROTEIN Trace (10 mg/dL) Not Available [facility] [address], [place], [address], 01/01/2024 10:36:40 01/01/20 24 01/01/2024 urina lysis , dipst ick NITRITES Negati ve Not Available [facility] [address], [place], [address], 01/01/2024 10:36:40 01/01/20 24 01/01/2024 urina lysis , dipst ick GLUCOSE Negati ve Not Available [facility] [address], [place], [address], 01/01/2024 10:36:40 01/01/20 24 01/01/2024 urina lysis , dipst ick p.H. 6.0 Not Available [facility] [address], [place], [address], 01/01/2024 10:36:40 01/01/20 24 01/01/2024 urina lysis , dipst ick S.G. (Specific [place]) 1.015 Not Available [facility] [address], [place], [address], 01/01/2024 10:36:40 01/01/20 24 01/01/2024 urina lysis , dipst ick LEUKOCYTES Trace (10 WBC/uL ) Not Available [facility] [address], [place], [address], 01/01/2024 10:36:40 12/27/19 24 11/07/2023 CT, urogr am No observ ation record ed. [email or web address] Not Available 2023 12:29:01 Result Notes None recorded. Procedures Surgical History Date Name Laterality Status Provider Name and Address Organization Details Recorded Time 01/01/20 24 CystoscopyFemale completed Ankita Hernandes MD [address], [place], [address], [facility] 01/01/2024 11:35:58 01/01/20 24 Urinalysis completed [facility] 01/01/2024 10:37:06 01/01/20 24 Bladder Scan completed [facility] 01/01/2024 11:23:46 Imaging Results None recorded. Procedure Notes None recorded. Medical Equipment None Reported. Allergies No known drug allergies Medications Name Sig Start Date Stop Date Status Note LastModified by Organization Details LastModified Time atorvastatin 20 mg tablet active Not Available Not Available Not Available lisinopril 20 mg tablet active Not Available Not Available Not Available alendronate 70 mg tablet active Not Available Not Available Not Available sulfamethoxa zole 800 mg-trimethop rim 160 mg tablet 12/31 completed Not Available Not Available Not Available omeprazole 40 mg capsule,krystyna yed release active Not Available Not Available Not Available cephalexin 500 mg capsule Take 1 capsule every day by oral route. active Not Available Not Available No t Available cefadroxil 1 gram tablet 12/31 completed Not Available Not Available Not Available fluocinonide 0.05 % topical solution active Not Available Not Available Not Available estradiol 0.01% (0.1 mg/gram) vaginal cream 12/31 completed Not Available Not Available Not Available ketoconazole 2 % topical cream 12/31 completed Not Available Not Available Not Available aspirin 81 mg capsule Take 1 capsule every day by oral route. active Not Available Not Available No t Available Vitals Date Recorded Body height Body mass index (BMI) Body weight Provider Name and Address Organization Details Last Updated DateTime 01/01/2024 152.4 cm 24.2 kg/m2 38870.45 g Willis Scherer [facility] 01/01/2024 11:08:38 Social History Question Answer Notes LastModified by Organizat ion Details LastModified Time Tobacco Smoking Status Never Smoker [facility] 01/01/2024 11:11:33 What Is Your Level Of Alcohol Consumption? None [email or web address] Information not available 01/01/2024 What Was The Date Of Your Most Recent Tobacco Screening? 01/01/2024 [email or web address] Information not available 01/01/2024 Sex: Unknown Functional Status None recorded. Mental Status None recorded. Family History Nothing Reported. Medical History Condition Response Sexually Transmitted Infection N Diabetes N Other N Bleeding Disorder N High Blood Pressure Y Kidney Stones Y High Cholesterol Y GERD/Acid Reflux N Heart Disease Y Cancer N Depression N Lung Disease N Gynecological HistoryNo gynecological history recorded. Obstetrics History GPAL:G 0 P 0 0 0 0 Immunizations Vaccine Type Date Status Provider Name and Address Organization Details Recorded Time Influenza, MDCK, quadrivalent, PF 01/29/2019 completed Willis Fajardoch [facility] 01/01/2024 11:07:13 zoster recombinant 06/25/2019 completed Willis Scottyc h kristi, [facility] 01/01/2024 11:07:13 zoster recombinant 01/29/2019 completed Willisaniya Ferrer h [facility] 01/01/2024 11:07:13 Influenza, adjuvanted, quadrivalent, PF 01/16/2020 completed Willis berry [facility] 01/01/2024 11:07:13 Influenza, adjuvanted, quadrivalent, PF 01/19/2021 completed Willis Scherer null, [facility] 01/01/2024 11:07:13 Influenza, adjuvanted, quadrivalent, PF 01/25/2022 completed Willis Scherer null, [facility] 01/01/2024 11:07:13 Influenza, adjuvanted, quadrivalent, PF 02/02/2023 [facility] 01/01/2024 11:07:13 COVID-19, mRNA, LNP-S, PF, 100 mcg/0.5mL dose or 50 mcg/0.25mL dose 07/01/2020 completed Willis Scherer null, [facility] 01/01/2024 11:07:13 COVID-19, mRNA, LNP-S, PF, 100 mcg/0.5mL dose or 50 mcg/0.25mL dose 07/29/2020 completed Willis Scherer null, [facility] 01/01/2024 11:07:13 COVID-19, mRNA, LNP-S, PF, 100 mcg/0.5mL dose or 50 mcg/0.25mL dose 03/09/2021 completed Willis Scherer null, [facility] 01/01/2024 11:07:13 COVID-19, mRNA, LNP-S, bivalent, PF, 50 mcg/0.5 mL or 25mcg/0.25 mL dose 08/14/2022 completed Willis Scherer null, [facility] 01/01/2024 11:07:13 COVID-19, mRNA, LNP-S, bivalent, PF, 50 mcg/0.5 mL or 25mcg/0.25 mL dose 01/25/2022 completed [facility]herer null, [facility] 01/01/2024 11:07:13 COVID-19, mRNA, LNP-S, PF, 50 mcg/0.5 mL 02/12/2023 completed Willis Scherer null, [facility] 01/01/2024 11:07:13 pneumococcal polysaccharide PPV23 11/29/2016 completed Willis Scherer null, [facility] 01/01/2024 11:07:13 Tdap 08/14/2022 completed Willis Scherer null, [facility] 01/01/2024 11:07:13 Tdap 11/08/2011 completed Willis berry, [facility] 01/01/2024 11:07:13 Pneumococcal conjugate PCV 13 11/23/2015 completed Willis berry, [facility] 01/01/2024 11:07:14 zoster live 11/01/2010 completed Willis berry, [facility] 01/01/2024 11:07:14 Influenza, high-dose, trivalent, PF 05/17/2016 completed Willis Scherer null, [facility] 01/01/2024 11:07:14 Influenza, high-dose, trivalent, PF 03/05/2018 completed Willis berry, [facility] 01/01/2024 11:07:14 Influenza, high-dose, trivalent, PF 03/16/2017 completed Willis berry, [facility] 01/01/2024 11:07:14 Influenza, split virus, trivalent, preservative 02/07/2011 completed Willis berry, [facility] 01/01/2024 11:07:14 Influenza, split virus, trivalent, preservative 02/08/2010 completed Willis berry, [facility] 01/01/2024 11:07:14 Influenza, split virus, trivalent, preservative 02/22/2012 [facility] 01/01/2024 11:07:14 Td (adult), 2 Lf tetanus toxoid, preservative free, adsorbed 04/29/2003 completed Willis berry, [facility] 01/01/2024 11:07:14 Influenza, split virus, quadrivalent, PF 01/30/2013 [facility] 01/01/2024 11:07:14 Past Encounters Encounter ID Performer Location Encounter Start Date Encounter Closed Date Diagnosis/Indication Diagnosis SNOMED-CT Code Diagnosis ICD10 Code [id number] Ankita Hernandes MD [facility] [address] [address] 01/01/2024 10:35:14 01/02/2024 12:55:58 Urinary tract infectious disease 77275078 N39.0 Health Concerns Section Related Observation LastModified by Organization Detai ls LastModified Time None Recorded Concern Status LastModified by Organization Details LastModified Time None Recorded Payers Encounter Date Sequence Insurance Name Policy Number Policy Enriquez Covered Member ID Enriquez Member ID Guarantor Name 01/01/2024 1 [employer] [id number] Liudmila Dudley [id number] Liudmila Dudley Notes Date Note Type Note Provider Name and Address Organization Details Recorded Time 01/01/2024 text/html HPI Notes: 73 YO F here for Arnold times 1-2 in one year; with low abdominal pressure/dysuria/ urgency. Patient reports LUTS of: urinary frequency, urgency, pelvic pressure, and vaginal itching since 09/2023. She has urgency to move bowels at night. Ho constipation. NO gross hematuria. Patient was prescribed estrace, but d/c'd as she felt it made sx worse Labs: -Vaginitis panel negative 11/02/23 UC Hx: -10/24/23: no growth- treated with Cephalexin -01/09/23: >100k E.Coli sandoval S Imaging: -11/07/23: CT abdomen/pelvis urogram: irregular bladder wall thickening PMHx includes: Chronic constipation, HTN, GERD PSHx: colonoscopy (10/2019), hernia repair, section UA=blood Cysto- Signs of cystitis throughout bladder with couple of ulcers. Ankita Hernandes MD [address], [place], [address], [facility] [place] [facility] 01/01/2024 11:36:18 OBGyn Episode No OBEpisode recorded.
--- OUTSIDE RECORDS SUMMARY | 2024-01-26 17:46 | XMS_ITS | Data Portability ---
Author Organization [place] [facility] Address [address] [place] [address] Assessment No assessment recorded. Plan of Treatment Reminders Order Date Submit Date Provider Last Modified By Organization Details Last Modified Time Details Appointments [facility] RTC 2023 11:10A M Not available Not available Not available Lab urinalys is, dipstick 2023 024 [facility], [address], [address], 01/01/2024 11:24:15 Referral None recorded . Procedures None recorded . Surgeries None recorded . Imaging None recorded . Medication Orders cephalex in 500 mg capsule 2023 024 [facility] [address] [place] [address], [id number], 01/01/2024 11:33:04 cephalex in 500 mg capsule 2023 024 [facility], [address] [place] [address], [id number], 01/01/2024 11:33:29 Patient TargetsNo targets recorded. Patient InstructionsNo instructions recorded. Reason for Referral None Reported. Results Created Date Observation Date Name Description Value Unit Range Abnormal Flag Note LastModifiedBy Organization Detail LastModifiedTime 01/01/2001/01/2024 URINE CULTU RE final report MICROB IOLOGY RESULT S abnormal SOURC E Void KNOWN ALLER GIES NKDA TREAT MENT See LS appt notes MEDIA PLATE D AT: Media plate d on 024 @ 4:00 PM COLON Y COUNT >100, 000 cfu/m l RESUL T Esche cecy a coli (Isol ate 1) Sensi tivit y Leslee sis Bethesda te 1 ----- ----- ----- ----- ----- ----- ----- - AMOX/ K CLAV <=8/4 *S AMP/S ULBAC CHARLES <=4/2 *S AMPIC ILLIN <=8*S AZTRE ONAM <=4*S CEFAZ LEEANNA <=2*S CEFOX ITIN <=8*S CEFTA ZIDIM E <=1*S CEFTR IAXON E <=1*S CIPRO FLOXA ROBBIN <=0.2 5*S NITRO FURAN TOIN <=32* S PIP/T AZO <=8*S TETRA CYCLI NE <=4*S TRIME TH/MORRISON LFA <=2/3 8*S Orga nisms that are susce ptibl e to tetra cycli ne are gener ally also susce ptibl e to doxyc yclin e and minoc yclin e. Any subst ituti on of drugs which have not been teste d for sensi tivit y shoul d be consi dered based on appro flo usage of the drugs . Infor daniel n on doxyc yclin e and minoc yclin e can be found in the Physi leah' s Desk [facility]. S= Susce ptibl e;I= Inter media te;R= Resis tant; ESBL= Resis tance due to confi rmed ESBL; Suspe cted ESBL= Posit arnav scree marvin only This lab resul t is being provi ded to you and your provi rubia at the same time in compl iance with the Centu ry Cures Act. Your provi rubia may not have had time to revie w and make recom menda tions based on the resul t. Claude e allow up to one week for provi rubia revie w. Not Available [facility] [address] [place] [address] [address], [place], [address], 01/03/2024 08:16:42 01/01/20 24 01/01/2024 urina lysis , dipst ick BLOOD Large (250 RBC/uL ) Not Available [facility] [address], [place], [address], 01/01/2024 10:36:40 01/01/20 24 01/01/2024 urina lysis , dipst ick BILIRUBIN Negati ve Not Available [facility] [address], [place], [address], 01/01/2024 10:36:40 01/01/20 24 01/01/2024 urina lysis , dipst ick UROBILINOGEN 0.2 mg/dL (Norm) Not Available [facility] [address], [place], [address], 01/01/2024 10:36:40 01/01/20 24 01/01/2024 urina lysis , dipst ick KETONES Negati ve Not Available [facility] [address], [place], [address], 01/01/2024 10:36:40 01/01/20 24 01/01/2024 urina lysis , dipst ick PROTEIN Trace (10 mg/dL) Not Available [facility] [address], [place], [address], 01/01/2024 10:36:40 01/01/20 24 01/01/2024 urina lysis , dipst ick NITRITES Negati ve Not Available [facility] [address], [place], [address], 01/01/2024 10:36:40 01/01/20 24 01/01/2024 urina lysis , dipst ick GLUCOSE Negati ve Not Available [facility] [address], [place], [address], 01/01/2024 10:36:40 01/01/20 24 01/01/2024 urina lysis , dipst ick p.H. 6.0 Not Available [facility] [address], [place], [address], 01/01/2024 10:36:40 01/01/20 24 01/01/2024 urina lysis , dipst ick S.G. (Specific [place]) 1.015 Not Available [facility] [address], [place], [address], 01/01/2024 10:36:40 01/01/20 24 01/01/2024 urina lysis , dipst ick LEUKOCYTES Trace (10 WBC/uL ) Not Available [facility] [address], [place], [address], 01/01/2024 10:36:40 12/27/19 24 11/07/2023 CT, urogr am No observ ation record ed. [email or web address] Not Available 2023 12:29:01 Result Notes None recorded. Procedures Surgical History Date Name Laterality Status Provider Name and Address Organization Details Recorded Time 01/01/20 24 CystoscopyFemale completed Ankita Hernandes MD [address], [place], [address], [facility] 01/01/2024 11:35:58 01/01/20 24 Urinalysis completed [facility] 01/01/2024 10:37:06 01/01/20 24 Bladder Scan completed [facility] 01/01/2024 11:23:46 Imaging Results Imaging Date Name Status LastModified by Organiz ation Details LastModified Time 11/07/2023 CT, urogram completed [email or web address] Information n ot available 12/27/2023 12:29:01 Procedure Notes None recorded. Medical Equipment None [...] Updated DateTime 01/01/2024 152.4 cm 24.2 kg/m2 66179.45 g Willis BRANCH [facility] 01/01/2024 11:08:38 Social History Question Answer Notes LastModified by Organizat ion Details LastModified Time Tobacco Smoking Status Never Smoker Willis berry [facility] 01/01/2024 11:11:33 What Is Your Level Of Alcohol Consumption? None [email or web address] Information not available 01/01/2024 What Was The Date Of Your Most Recent Tobacco Screening? 01/01/2024 [email or web address] Information not available 01/01/2024 Sex: Unknown Functional Status None recorded. Mental Status None recorded. Family History Nothing Reported. Medical History Condition Response Other N High Blood Pressure Y Kidney Stones Y Lung Disease N Depression N GERD/Acid Reflux N Diabetes N Sexually Transmitted Infection N Bleeding Disorder N Cancer N High Cholesterol Y Heart Disease Y Gynecological HistoryNo gynecological history recorded. Obstetrics History GPAL:G 0 P 0 0 0 0 Immunizations Vaccine Type Date Status Provider Name and Address Organization Details Recorded Time Influenza, MDCK, quadrivalent, PF 01/29/2019 completed Willis berry [facility] 01/01/2024 11:07:13 zoster recombinant 06/25/2019 completed Willis Finc h null, [facility] 01/01/2024 11:07:13 zoster recombinant 01/29/2019 completed Willis Finc h null, [facility] 01/01/2024 11:07:13 Influenza, adjuvanted, quadrivalent, PF 01/16/2020 completed Willis Scherer null, [facility] 01/01/2024 11:07:13 Influenza, adjuvanted, quadrivalent, PF 01/19/2021 completed Willis Scherer null, [facility] 01/01/2024 11:07:13 Influenza, adjuvanted, quadrivalent, PF 01/25/2022 completed Willis Scherer null, [facility] 01/01/2024 11:07:13 Influenza, adjuvanted, quadrivalent, PF 02/02/2023 completed Willis Scherer null, [facility] 01/01/2024 11:07:13 COVID-19, mRNA, LNP-S, PF, 100 mcg/0.5mL dose or 50 mcg/0.25mL dose 07/01/2020 completed Willis Scherer null, [facility] 01/01/2024 11:07:13 COVID-19, mRNA, LNP-S, PF, 100 mcg/0.5mL dose or 50 mcg/0.25mL dose 07/29/2020 completed Willis Scherer null, [facility] 01/01/2024 11:07:13 COVID-19, mRNA, LNP-S, PF, 100 mcg/0.5mL dose or 50 mcg/0.25mL dose 03/09/2021 completed Willis Scherer null, [facility] 01/01/2024 11:07:13 COVID-19, mRNA, LNP-S, bivalent, PF, 50 mcg/0.5 mL or 25mcg/0.25 mL dose 08/14/2022 completed Willis Scherer null, [facility] 01/01/2024 11:07:13 COVID-19, mRNA, LNP-S, bivalent, PF, 50 mcg/0.5 mL or 25mcg/0.25 mL dose 01/25/2022 completed Willis Scherer null, [facility] 01/01/2024 11:07:13 COVID-19, mRNA, LNP-S, PF, 50 mcg/0.5 mL 02/12/2023 completed Willis Scherer null, [facility] 01/01/2024 11:07:13 pneumococcal polysaccharide PPV23 11/29/2016 completed Willis Scherer null, [facility] 01/01/2024 11:07:13 Tdap 08/14/2022 completed Willis Scherer null, [facility] 01/01/2024 11:07:13 Tdap 11/08/2011 completed Willis Scherer null, [facility] 01/01/2024 11:07:13 Pneumococcal conjugate PCV 13 11/23/2015 completed Willis Scherer null, [facility] 01/01/2024 11:07:14 zoster live 11/01/2010 completed Willis Scherer null, [facility] 01/01/2024 11:07:14 Influenza, high-dose, trivalent, PF 05/17/2016 completed Willis Scherer null, [facility] 01/01/2024 11:07:14 Influenza, high-dose, trivalent, PF 03/05/2018 completed Willis Scherer null, [facility] 01/01/2024 11:07:14 Influenza, high-dose, trivalent, PF 03/16/2017 completed Willis Scherer null, [facility] 01/01/2024 11:07:14 Influenza, split virus, trivalent, preservative 02/07/2011 completed Willis Scherer null, [facility] 01/01/2024 11:07:14 Influenza, split virus, trivalent, preservative 02/08/2010 completed Willis Scherer null, [facility] 01/01/2024 11:07:14 Influenza, split virus, trivalent, preservative 02/22/2012 completed Willis Scherer null, [facility] 01/01/2024 11:07:14 Td (adult), 2 Lf tetanus toxoid, preservative free, adsorbed 04/29/2003 completed Willis Scherer null, [facility] 01/01/2024 11:07:14 Influenza, split virus, quadrivalent, PF 01/30/2013 completed Willis Scherer kristi, [facility] 01/01/2024 11:07:14 Past Encounters Encounter ID Performer Location Encounter Start Date Encounter Closed Date Diagnosis/Indication Diagnosis SNOMED-CT Code Diagnosis ICD10 Code [id number] Ankita Hernandes MD [facility] [address] [place] [address] 01/01/2024 10:35:14 01/02/2024 12:55:58 Urinary tract infectious disease 62144843 N39.0 Health Concerns Section Related Observation LastModified by Organization Detai ls LastModified Time None Recorded Concern Status LastModified by Organization Details LastModified Time None Recorded Advance Directives Directive None Recorded Payers Encounter Date Sequence Insurance Name Policy Number Policy Enriquez Covered Member ID Enriquez Member ID Guarantor Name 01/01/2024 1 [employer]ICARE COST [id number] Liudmila Dudley [id number] Liudmila Dudley Notes Date Note Type Note [...] with couple of ulcers. Ankita Hernandes MD [address], [place], [address], [place] [facility] 01/01/2024 11:36:18 OBGyn Episode No OBEpisode recorded.
[2024-01-26 18:17] LABS: Basophils Absolute Auto 0.03 K/uL (0.00-0.30); Basophils Percent Auto 0.5 % (0.0-3.0); Eosinophils Absolute Auto 0.22 K/uL (0.00-0.50); Eosinophils Percent Auto 3.6 % (0.0-7.0); Hematocrit 40.8 % (33.0-51.0); Hemoglobin* 13.4 gm/dL (12.0-16.0); Immature Granulocytes Abs Auto 0.01 K/uL (0.00-0.30); Immature Granulocytes Pct Auto 0.2 %; Lymphocytes Absolute Auto 1.38 K/uL (0.90-2.90); Lymphocytes Percent Auto 22.4 % (20-44); Mean Corpuscular HGB Conc 33 gm/dL (32-36); Mean Corpuscular Hemoglobin 29 pg (26-34); Mean Corpuscular Volume 88 fL (80-100); Monocytes Percent Auto 10.1 % (0.0-11.0); Neutrophils Percent Auto 63.2 % (42.0-72.0); Platelet Count* 298 K/uL (140-440); RDW Coefficient of Variation % 12.3 % (11.5-15.5); Red Blood Count 4.63 m/uL (4.00-5.20); White Blood Count* 6.16 K/uL (4.50-11.00)
[2024-01-26 18:21] LABS: Slide Review Reflex No
[2024-01-26 18:27] LABS: Clue Cells No Clue Cells Seen (None Seen); Trichomonas No Trichomonas Seen (None Seen); Yeast No Yeast Seen (None Seen)
[2024-01-26 18:29] LABS: Chloride* 96 mmol/L (96-114); Sodium* 131 mmol/L (135-149)
[2024-01-26 18:30] LABS: Potassium* 4.7 mmol/L (3.6-5.1)
[2024-01-26 18:32] LABS: Creatinine* 0.7 mg/dL (0.5-1.5); Est. Creatinine Clearance* 35.99; Estimated Glomerular Filt Rate 91 ml/min
[2024-01-26 18:33] LABS: Anion Gap 5 mEq/L (7-15); Blood Urea Nitrogen* 19 mg/dL (7-30); Calcium* 9.4 mg/dL (8.4-10.6); Carbon Dioxide* 30 mmol/L (20-32); Glucose* 104 mg/dL (60-115)
[2024-01-26 18:36] LABS: C Reactive Protein* 0.5 mg/dL (0.5-1.0)
[2024-01-26 19:14] LABS: Bacterial Vaginosis* Negative (Negative); Candida glab/krus NOT DETECTED (No Detected); Candida species NOT DETECTED (No Detected); Trichomonas vaginalis NOT DETECTED (No Detected)
[2024-01-26] MEDS: NITROFURANTOIN MONOHYD MACRO 100 MG CAPSULE PO (19:34)
== END 2024-01-26 19:36 | disposition home or self-care (01) ==
PROVIDERS: Emergency Provider Family Medicine; PCP Family Medicine
DX: N30.20 Other chronic cystitis without hematuria (principal)
CPT/HCPCS: 36415; 80048; 81001; 81513; 85025; 86140; 87086; 87210; 87481; 87661; 99283; 99284; A9270

== ENCOUNTER 2024-02-04 07:15 | Day surgery (SDC) | payer MEDICARE, BC, SELFPAY ==
[2024-02-04] VITALS (25 sets, daily range): BP systolic 93–144; BP diastolic 60–100; PULSE 51–89; RESP 14–18; TEMP 35.6–36.7; O2SAT 92–99; BMI 24.9
--- OUTSIDE RECORDS SUMMARY | 2024-02-04 07:19 | XMS_ITS | Clinical Summary ---
Author Organization [facility] Address [place], [place] [address] Care Team Providers Care Technical Professional Name Role Phone MottNathan Bryant Blanchard [phone] Agnes Tejeda MD Primary Care Provider Allergies No known active allergies Medications Medication Sig Dispensed Refills Start Date End Date Status aspirin (ECOTRIN) 81 mg enteric coated tablet Take 1 tablet by mouth once daily with a meal. 100 tablet PRN 4 Active zqjuekxr-vsfq-QZ-c alcium-mins (ONE-A-DAY WOMEN'S PETITES) 9 mg iron-200 [...] a time. 60 mL 2 3 Active durable medical equipment (DME)Indications:H TN [...] once daily for 45 days 4 Active lisinopriL (PRINIVIL; ZESTRIL) 20 mg tabletIndications: HTN (hypertension) Take 1 Tablet (20 mg) by mouth once daily. 90 Tablet 2 4 Active atorvastatin (Lipitor) 20 mg tabletIndications: [...] 12 Tablet 3 3 01/15/20 24 Discontinued lisinopriL (PRINIVIL; ZESTRIL) 20 mg tabletIndications: HTN (hypertension) Take 1 Tablet (20 mg) by mouth once daily. 90 Tablet 3 3 02/04/20 24 Discontinued estradioL (ESTRACE) 0.01% (0.1 mg/g) [...] Encounters Date Type Department Care Team Description 01/31/2024 Refill [facility] [address] [place] [address] Agnes Tejeda MD Refill Request (Lisinopril) 01/28/2024 10:40 AM CDT Ancillary Procedure [facility] [address] [place] [address] 01/28/2024 Travel 01/23/2024 Travel 01/21/2024 8:15 AM CDT Preop Visit [facility] [address] [place] [address] Agnes Tejeda MD Pre-Op Exam [facility]04[facility]) 01/21/2024 Travel 01/18/2024 Refill [facility] [address] [place] [address] Agnes Tejeda MD Refill Request (Atorvastatin) 01/12/2024 Refill [facility] [address] [place] [address] Agnes Tejeda MD Refill Request (Alendronate) 01/04/2024 Telephone [facility] [address] [place] [address] Agnes Tejeda MD Follow Up 01/01/2024 Orders Only [facility] Scanner 1 scan: (1-Ord) [facility], CYSTOSCOPY, 01/01/2024 01/01/2024 Orders Only [facility] Scanner 1 scan: (1-Ord) UNKNOWN FACILITY, URINALYSIS, 01/01/2024 01/01/2024 Orders Only [facility] Scanner 1 scan: (1-Ord) [place] [facility], URINE CULTURE, 01/01/2024 01/01/2024 Telephone [facility] [address] [facility] [address] Agnes Tejeda MD Appointment (preop) 11/28/2023 9:05 AM CDT Office Visit [facility] [place] [address] Alison Quintana PA Follow Up (Urinary problems); Derm Problem (redness on abdomen/right groin) 11/28/2023 Travel 11/21/2023 9:05 AM CDT Office Visit [facility] [place] [address] Alison Quintana PA Follow Up (urinary problems- sleeping at night has been difficult due to pain in lower abdomen/ pelvic area ) 11/20/2023 Travel 11/20/2023 Telephone [facility] [place] [address] Alison Quintana PA Medication Management (UTI Medication not working.) 11/08/2023 Telephone [facility] [address] Agnes Tejeda MD 11/07/2023 3:00 PM CDT Ancillary Procedure [address] [place] [address] 11/07/2023 2:45 PM CDT Orders Only [facility] [address] [facility] [address] Lab, [place] [facility] 11/07/2023 Travel from Last 3 Months Immunizations Name Administration [...] Heart Disease Brother pacemaker Heart Disease Father ND Hypertension Father Other Maternal Aunt Alzheimer's de [...] T Respiratory Rate 14 06/08/2022 9:45 AM 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 LABORATORY TECHNICIAN Oxygen Saturation 98% 01/21/2024 8:11 AM CDT Inhaled Oxygen Concentration - - Weight 56.3 kg (124 lb 3.2 oz) 01/21/2024 8:11 A M CDT Height 151.5 cm (4' 11.65) 01/21/2024 8:11 AM C DT Body Mass Index 24.54 01/21/2024 8:11 AM CDT Plan of Treatment Upcoming Encounters Date Type Department Care Team (Late st Contact Info) Description 02/21/2024 8:00 AM CDT Office Visit [facility] [address] [place] [address] Agnes Tejeda MD [address] [place] [address] Health Maintenance Due Date Last Done Comments Depression screening for age 12+ 02/20/2024 02/19/2023, 01/20/2022, 01/20/2022, Additional history exists Medicare Wellness for age 65+ 02/20/2024, 01/20/2022, 01/19/2021, Additional history exists BMI (ht and wt on same day) for age 18+ 01/20/2025 01/21/2024, 02/19/2023, 05/29/2022, Additional history exists Mammogram for age 45-75 01/27/2025 01/28/20 24, 01/24/2023, 01/20/2022, Additional history exists Lipids for age 45-75 [...] Procedure Name Priority Date/Time Associated Diagnosis Comments XR MAMMO KAYLENE BILAT SCREEN Routine 01/28/2024 10:48 AM CDT Visit for screening mammogram EKG 12 LEAD UNIT PERFORMED Routine 01/21/2024 10:40 AM CDT Preop examination MT READING EKG - NO CHARGE, COMP ONLY [...] CDT Observation or evaluation for suspected condition XR DXA BONE DENSITY 2 SITES AXIAL Routine 01/24/2022 9:57 AM CDT Menopause COLONOSCOPY 11/19/2019 7:34 AM CDT ANTI HCV Routine 04/29/2003 10:14 AM GEOCHEMICAL LABORATORY TECHNICIAN from Last 3 Months or Most Recently Relevant to Health Maintenance Results * XR MAMMO KAYLENE BILAT SCREEN (01/28/2024 10:48 AM CDT) Anatomical Region Laterality Modality BREASTS, Breast Left, Breast Right Bilateral Mammography Impressions 01/28/2024 3:04 PM CDT ??There is no radiographic evidence for malignancy. ??Recommend annual mammograms. MAMMOGRAM ASSESSMENT: ??ACR 1 Negative PATIENTS: You will also receive a letter with your examination results in an easy to read format. ??If you have questions about your results, please contact your referring provider. Narrative 01/28/2024 3:04 PM CDT For Patients: As a result of the 21st Century Cures Act, medical imaging exams and procedure reports are released immediately into your electronic medical record. You may view this report before your referring provider. If you have questions, please contact your health care provider. XR MAMMO KAYLENE BILAT SCREEN [[id number]] CLINICAL HISTORY: ??This is an asymptomatic 73 y.o. patient. INDICATION FOR EXAM: Mammogram Screening. TECHNIQUE: CC & MLO views were obtained. ??This study was evaluated with the assistance of Computer-Aided Detection. Breast Tomosynthesis was used in interpretation. COMPARISON FILM: Yes 01/24/23 [facility] 01/20/22 [facility] FINDINGS: ??There are scattered areas of fibroglandular density. There are no dominant masses, suspicious micro calcifications or areas of architectural distortion. Agnes Tejeda MD MAMMO * EKG 12 LEAD UNIT PERFORMED (01/21/2024 10:40 AM CDT) Agnes Tejeda MD EKG ORD * MT READING EKG - NO CHARGE, COMP ONLY (01/21/2024 10:39 AM CDT) Agnes Tejeda MD PB - PROVIDER R EADINGS * (ABNORMAL) LIPID PANEL W REFLEX MEASURED LDL (01/21/2024 9:33 AM CDT) CHOLESTEROL, TOTAL 206(H) <200 mg/dL [facility] HDL CHOLESTEROL 71 > OR = 50 mg/dL [facility] TRIGLYCERIDES 141 <150 mg/dL [facility] LDL-CHOLESTEROL 110(H) mg/dL (calc) [facility] Comment: Reference range: <100 Desirable range <100 mg/dL for primary prevention; ?? <70 mg/dL for patients with CHD or diabetic patients with > or = 2 CHD risk factors. LDL-C is now calculated using the Evert-Luisa calculation, which is a validated novel method providing better accuracy than the Friedewald equation in the estimation of LDL-C. Evert BOROKE et al. MORIAH. 2013;310(19): 6306-6735 (http://education.[employer].Spinal Restoration/faq/NJY475) CHOL/HDLC RATIO 2.9 <5.0 (calc) [facility] NON HDL CHOLESTEROL 135(H) <130 mg/dL (calc) [facility] Comment: For patients with diabetes plus 1 major ASCVD risk factor, treating to a non-HDL-C goal of <100 mg/dL (LDL-C of <70 mg/dL) is considered a therapeutic option. Blood BLOOD SPECIMEN / Unknown 01/21/2024 9:33 AM CDT 01/21/2024 9:34 AM CDT Agnes Tejeda MD CHEMISTRY [employer] [facility] [address] [place] [address], [facility] [address] [place] [address] * HEMOGLOBIN (01/21/2024 9:33 AM CDT) HEMOGLOBIN 14.8 11.7 - 15.5 g/dL [facility] Blood BLOOD SPECIMEN / Unknown 01/21/2024 9:33 AM CDT 01/21/2024 9:34 AM CDT Agnes Tejeda MD HEMATOLOGY Performing Organization Address City/[facility]/ZIP Co de Phone Number [employer] [facility] [address] [place] [address], [facility] [address] [place] [address] * BASIC METABOLIC PANEL (01/21/2024 9:33 AM CDT) GLUCOSE 89 65 - 99 mg/dL [facility] Comment: ? Fasting reference interval UREA NITROGEN (BUN) 19 7 - 25 mg/dL [facility] CREATININE 0.71 0.60 - 1.00 mg/dL [facility] EGFR 90 > OR = 60 mL/min/1. 73m2 [facility] BUN/CREATININE RATIO SEE NOTE: (calc) [facility] Comment: ?? Not Reported: BUN and Creatinine are within ?? reference range. ? SODIUM 138 135 - 146 mmol/L [facility] POTASSIUM 4.7 3.5 - 5.3 [...] 9:34 AM CDT Agnes Tejeda MD CHEMISTRY [employer] [facility] [address] [place] [address], [facility] [address] [place] [address] * SCAN-OPERATIVE/PROCEDURE REPORT (01/01/2024 12:00 AM CDT) [...] For Patients: ??As a result of the Cures Act, medical [...] * (ABNORMAL) CREATININE,ISTAT (11/07/2023 3:05 PM CDT) CREATININE, POCT 0.80 0.57 - 1.11 mg/dL 11/07/2023 3:07 PM CDT [facility] Comment:Caution: Patients ta rob Hydroxyurea have falsely increased iStat Creatinine results. Verify creatinine results ordering a Creatinine (62558.2) eGFR 78(L) >90 mL/min/1.7 3m2 11/07/2023 3:07 PM CDT [facility] Comment:As of 2021, eG FR is calculated by the CKD-EPI creatinine equation without race adjustment. eGFR can be influenced by muscle mass, exercise, and diet. The reported eGFR is an estimation only and is only applicable if the renal function is stable. Blood BLOOD SPECIMEN / Unknown 11/07/2023 3:05 PM CDT 11/07/2023 3:07 PM CDT Alison NUNEZ CHEMISTRY [facility] [address] [place] [address], * (ABNORMAL) XR DXA BONE DENSITY 2 [...] to assess therapeutic efficacy. Genesis Kearney PA-C [facility] 01/26/2022 Narrative 01/26/2022 10:30 AM CDT For Patients: Results are automatically released to your [facility] ([employer]) account once available, in compliance with federal regulations. This means that you may see your results before your provider has had a chance to review them. Please allow 2-3 business days for your provider to comment on the results. XR DXA Bone Mineral Density (BMD) EXAM LOCATION: [facility] [address] [facility] [address] PATIENT NAME: Liudmila Dudley DATE OF : [...] two scanners are made by the same winch runner. PROCEDURE: Dual-energy x-ray absorptiometry performed with routine [...] Evert Traore MD - 11/19/2019 9:00 AM CDT Patient Name: Liudmila Dudley Procedure Date: 11/19/2019 Gender: Female Date of : 1950 Admit Type: Outpatient Procedure: Colonoscopy Proceduralist: Evert Traore MD , Alison Churchill, RN (Nurse), Kae Coppola (Nurse) Indications/Pre-Op Diagnosis: Screening for colorectal malignant neoplasm, Last colonoscopy: October 2009 Medications: Fentanyl 100 micrograms IV, Midazolam 1 mgIV, The level of sedation administered wasmoderate Procedure Description: The patient had risks, benefits and alternatives explained to andgave informed consent. The patient had a stable cardiopulmonary status and judged an adequate candidate for conscious sedation. The Colonoscope was passed through the anus and advanced to thececum, identified by appendiceal orifice and ileocecal valve. Thecolonoscopy was performed without difficulty. The patient tolerated the procedure well. The quality of the bowel preparation was good. The ileocecal valve, appendiceal orifice, and rectum were photographed. Complications: No immediate complications. Estimated Blood Loss & Specimen: Estimated blood loss: none. Specimen collected - Yes and sent to Laboratory Findings: The perianal and digital rectal examinations were normal. A few small-mouthed diverticula were found in the sigmoid colon. The exam was otherwise without abnormality on direct and retroflexion views. Impressions/Post-Op Diagnosis: - Diverticulosis in the sigmoid colon. - The examination was otherwise normal on direct and retroflexionviews. - No specimens collected. Recommendation: - Patient has a contact number available for emergencies. The signsand symptoms of potential delayed complications were discussed with the patient. Return to normal activities tomorrow. Written discharge instructions were provided to the patient. - Resume previous diet. - Continue present medications. - Repeat colonoscopy in 10 years for screening purposes. Moderate Sedation: Moderate (conscious) sedation was administered by the endoscopy nurse and supervised by the endoscopist. The following parameters were monitored: oxygen saturation, heart rate, respiratory rate, blood pressure, adequacy of pulmonary ventilation and reponse to care. Please refer to the the medical center'ts medical record flowsheets and nursing notes for moderate sedation details. Total physician intraservice time was 18 minutes. Evert Traore MD 11/19/2019 9:00:04 AM This report has been signed electronically. Note Initiated On: 11/19/2019 7:34 AM Procedure Code(s): --- Professional --- 19300, Colonoscopy, flexible; diagnostic, including collection of specimen(s) bybrushing or washing, when performed (separateprocedure) Diagnosis Code(s): --- Professional --- Z12.11, Encounter for screening formalignant neoplasm of colon K57.30, Diverticulosis of large intestine without perforation or abscess withoutbleeding CPT copyright 2019 [employer]. All rights reserved. The codes documented in this report are preliminary and upon careers adviser reviewmay be revised to meet current compliance requirements. Scope In: 8:39:21 AM Scope Withdrawal Time 0 hours 7 minutes 53 seconds Scope Out: 8:55:00 AM Evert Traore MD PROCEDURE ORD * ANTI HCV (04/29/2003 10:14 AM GEOCHEMICAL LABORATORY TECHNICIAN) ANTI HCV Non-reactiv e 04/29/2003 10:1 4 AM GEOCHEMICAL LABORATORY TECHNICIAN Narrative 10/08/2003 2:11 AM CDT Ordered by an unspecified provider. Other Clinical Staff SEND OUTS from Last 3 Months or Most Recently Relevant to Health Maintenance Care Teams Technical Professional Relationship Specialty Start Date End Date Agnes Tejeda MD [address] [place] [address] PCP - General Family Practice 12/09/18 Nathan Mott [address] [place] [address] Athletic Shoe Designer 11/23/15
--- OUTSIDE RECORDS SUMMARY | 2024-02-04 07:20 | XMS_ITS | Continuity of Care Document ---
Author Organization [facility] Address [address] [place] [address] Assessment No assessment recorded. Plan of Treatment Reminders Order Date Submit Date Provider Last Modified By Organization Details Last Modified Time Details Appointments [facility] RTC 2023 11:10A M Ankita Hernandes MD Not available Not available Not available Lab urinaly sis, dipstic k 2023 024 [id number] [facility], [address], [place], [address], 01/01/2024 11:24:15 Referral None recorde d. Procedures None recorde d. Surgeries None recorde d. Imaging None recorde d. Medication Orders cephale lurdes 500 mg capsule 2023 024 [facility] [place] [address] [place] [address], [address], 01/01/2024 11:33:04 cephale lurdes 500 mg capsule 2023 024 [facility] [place], [address] [place] [address], [address], 01/01/2024 11:33:29 Patient TargetsNo targets recorded. Patient InstructionsNo instructions recorded. Reason for Referral None Reported. Results Created Date Observation Date Name Description Value Unit Range Abnormal Flag Note LastModifiedBy Organization Detail LastModifiedTime 01/01/20 24 01/01/2024 urina lysis , dipst ick BLOOD Large (250 RBC/uL ) Not Available [facility] [address], [place], [address], 01/01/2024 10:36:40 01/01/20 24 01/01/2024 urina lysis , dipst ick BILIRUBIN Negati ve Not Available [facility] [address], [place], [address], 01/01/2024 10:36:40 01/01/20 24 01/01/2024 urina lysis , dipst ick UROBILINOGEN 0.2 mg/dL (Norm) Not Available [facility] [address], [place], [address], 01/01/2024 10:36:40 01/01/20 24 01/01/2024 urina lysis , dipst ick KETONES Negati ve Not Available [facility] [address], [place], [address], 01/01/2024 10:36:40 01/01/20 24 01/01/2024 urina lysis , dipst ick PROTEIN Trace (10 mg/dL) Not Available [facility] [address], [place], [address], 01/01/2024 10:36:40 01/01/20 24 01/01/2024 urina lysis , dipst ick NITRITES Negati ve Not Available [facility] [address], [place], [address], 01/01/2024 10:36:40 01/01/20 24 01/01/2024 urina lysis , dipst ick GLUCOSE Negati ve Not Available [facility] [address], [place], [address], 01/01/2024 10:36:40 01/01/20 24 01/01/2024 urina lysis , dipst ick p.H. 6.0 Not Available [facility] [address], [place], [address], 01/01/2024 10:36:40 01/01/20 24 01/01/2024 urina lysis , dipst ick S.G. (Specific [place]) 1.015 Not Available [facility] [address], [place], [address], 01/01/2024 10:36:40 01/01/20 24 01/01/2024 urina lysis , dipst ick LEUKOCYTES Trace (10 WBC/uL ) Not Available [facility] [address], [place], [address], 01/01/2024 10:36:40 12/27/19 24 11/07/2023 CT, urogr am No observ ation record ed. [email or web address] Not Available 2023 12:29:01 Result Notes None recorded. Procedures Surgical History Date Name Laterality Status Provider Name and Address Organization Details Recorded Time 01/01/20 24 CystoscopyFemale completed Ankita Hernandes MD [address] [facility],[address], [place], [address], [facility] 01/01/2024 11:35:58 01/01/20 24 Urinalysis completed [facility] 01/01/2024 10:37:06 01/01/20 24 Bladder Scan completed [facility] 01/01/2024 11:23:46 Imaging Results None recorded. Procedure [...] Updated DateTime 01/01/2024 152.4 cm 24.2 kg/m2 80180.45 g Willis BRANCH [facility] 01/01/2024 11:08:38 Social History Question Answer Notes LastModified by Organizat ion Details LastModified Time Tobacco Smoking Status [facility] 01/01/2024 11:11:33 What Is Your Level Of Alcohol Consumption? None [email or web address] Information not available 01/01/2024 What Was The Date Of Your Most Recent Tobacco Screening? 01/01/2024 [email or web address] Information not available 01/01/2024 Sex: Unknown Functional Status None recorded. Mental Status None recorded. Family History Nothing Reported. Medical History Condition Response Sexually Transmitted Infection N Diabetes N Bleeding Disorder N Other N High Blood Pressure Y Kidney Stones Y High Cholesterol Y GERD/Acid Reflux N Heart Disease Y Cancer N Lung Disease N Depression N Gynecological HistoryNo gynecological history recorded. Obstetrics History GPAL:G 0 P 0 0 0 0 Immunizations Vaccine Type Date Status Provider Name and Address Organization Details Recorded Time Influenza, MDCK, quadrivalent, PF 01/29/2019 [facility] 01/01/2024 11:07:13 zoster recombinant 06/25/2019 completed Willis berry [facility] 01/01/2024 11:07:13 zoster recombinant 01/29/2019 completed [facility] 01/01/2024 11:07:13 Influenza, adjuvanted, quadrivalent, PF 01/16/2020 [facility] 01/01/2024 11:07:13 Influenza, adjuvanted, quadrivalent, PF 01/19/2021 completed Willis Scherer null, [facility] 01/01/2024 11:07:13 Influenza, adjuvanted, quadrivalent, PF 01/25/2022 completed Willis Scherer null, [facility] 01/01/2024 11:07:13 Influenza, adjuvanted, quadrivalent, PF 02/02/2023 completed Willis Scherer null, [facility] 01/01/2024 11:07:13 COVID-19, mRNA, LNP-S, PF, 100 mcg/0.5mL dose or 50 mcg/0.25mL dose 07/01/2020 completed Willis Scherer null, [facility] 01/01/2024 11:07:13 COVID-19, mRNA, LNP-S, PF, 100 mcg/0.5mL dose or 50 mcg/0.25mL dose 07/29/2020 completed Willis Scherer null, [facility] 01/01/2024 11:07:13 COVID-19, mRNA, LNP-S, PF, 100 mcg/0.5mL dose or 50 mcg/0.25mL dose 03/09/2021 completed Willis Scherer null, [facility] 01/01/2024 11:07:13 COVID-19, mRNA, LNP-S, bivalent, PF, 50 mcg/0.5 mL or 25mcg/0.25 mL dose 08/14/2022 completed Willis Scherer null, [facility] 01/01/2024 11:07:13 COVID-19, mRNA, LNP-S, bivalent, PF, 50 mcg/0.5 mL or 25mcg/0.25 mL dose 01/25/2022 completed Willis Scherer null, [facility] 01/01/2024 11:07:13 COVID-19, mRNA, LNP-S, PF, 50 mcg/0.5 mL 02/12/2023 completed Willis Scherer null, [facility] 01/01/2024 11:07:13 pneumococcal polysaccharide PPV23 11/29/2016 completed Willis Scherer null, [facility] 01/01/2024 11:07:13 Tdap 08/14/2022 completed Willis berry, [facility] 01/01/2024 11:07:13 Tdap 11/08/2011 completed Willis berry, [facility] 01/01/2024 11:07:13 Pneumococcal conjugate PCV 13 11/23/2015 [facility] 01/01/2024 11:07:14 zoster live 11/01/2010 completed Willis berry, [facility] 01/01/2024 11:07:14 Influenza, high-dose, trivalent, PF 05/17/2016 completed Willis Scherer null, [facility] 01/01/2024 11:07:14 Influenza, high-dose, trivalent, PF 03/05/2018 completed Willis berry, [facility] 01/01/2024 11:07:14 Influenza, high-dose, trivalent, PF 03/16/2017 [facility] 01/01/2024 11:07:14 Influenza, split virus, trivalent, preservative 02/07/2011 completed Willis Scherer null, [facility] 01/01/2024 11:07:14 Influenza, split virus, trivalent, preservative 02/08/2010 [facility] 01/01/2024 11:07:14 Influenza, split virus, trivalent, preservative 02/22/2012 [facility] 01/01/2024 11:07:14 Td (adult), 2 Lf tetanus toxoid, preservative free, adsorbed 04/29/2003 [facility] 01/01/2024 11:07:14 Influenza, split virus, quadrivalent, PF 01/30/2013 [facility] 01/01/2024 11:07:14 Past Encounters Encounter ID Performer Location Encounter Start Date Encounter Closed Date Diagnosis/Indication Diagnosis SNOMED-CT Code Diagnosis ICD10 Code [id number] Ankita Hernandes MD [facility] [address] [address] 01/01/2024 10:35:14 01/02/2024 12:55:58 Urinary tract infectious disease 36917562 N39.0 Health Concerns Section Related Observation LastModified by Organization Detai ls LastModified Time None Recorded Concern Status LastModified by Organization Details LastModified Time None Recorded Payers Encounter Date Sequence Insurance Name Policy Number Policy Enriquez Covered Member ID Enriquez Member ID Guarantor Name 01/01/2024 1 [place] COST [id number] Liudmila Dudley [id number] Liudmila Dudley Notes Date Note Type Note [...] with couple of ulcers. Ankita Hernandes MD [address] [place] [address],[address], [place], [address], [facility] 01/01/2024 11:36:18 OBGyn Episode No OBEpisode recorded.
--- OUTSIDE RECORDS SUMMARY | 2024-02-04 07:20 | XMS_ITS | Data Portability ---
Author Organization [place] [facility] Address [address] [place] [address] Assessment No assessment recorded. Plan of Treatment Reminders Order Date Submit Date Provider Last Modified By Organization Details Last Modified Time Details Appointments [facility] RTC 2023 11:10A M Ankita Hernandes MD Not available Not available Not available Lab urinaly sis, dipstic k 2023 024 [email or web address] [facility], [address] [place], [address], 01/01/2024 11:24:15 Referral None recorde d. Procedures None recorde d. Surgeries None recorde d. Imaging None recorde d. Medication Orders cephale lurdes 500 mg capsule 2023 024 [facility] [address] [place] [address], [id number], 01/01/2024 11:33:04 cephale lurdes 500 mg capsule 2023 024 [facility], [address] [place] [address], [id number], 01/01/2024 11:33:29 Patient TargetsNo targets recorded. Patient InstructionsNo instructions recorded. Reason for Referral None Reported. Results Created Date Observation Date Name Description Value Unit Range Abnormal Flag Note LastModifiedBy Organization Detail LastModifiedTime 01/01/20 24 01/01/2024 URINE CULTU RE final report MICROB IOLOGY RESULT S abnormal SOURC E Void KNOWN ALLER GIES NKDA TREAT MENT See LS appt notes MEDIA PLATE D AT: Media plate d on 024 @ 4:00 PM COLON Y COUNT >100, 000 cfu/m l RESUL T Esche cecy a coli (Isol ate 1) Sensi tivit y Leslee sis [place] te 1 ----- ----- ----- ----- ----- [...] flo usage of the drugs . Infor matio n on doxyc yclin e and minoc yclin e can be found in the Physi leah' s Desk [facility]. S= Susce ptibl e;I= Inter [...] menda tions based on the resul t. Pleas e allow up to one week for provi rubia revie w. Not Available [facility] [address], [place], [address], 01/03/2024 08:16:42 01/01/20 24 01/01/2024 urina lysis , dipst ick BLOOD Large (250 RBC/uL ) Not Available [facility] [address], [place], [address], 01/01/2024 10:36:40 01/01/20 24 01/01/2024 urina lysis , dipst ick BILIRUBIN Negati ve Not Available [facility] [address], [place], [address], 01/01/2024 10:36:40 01/01/20 24 01/01/2024 urina lysis , dipst ick UROBILINOGEN 0.2 mg/dL (Norm) Not Available [facility] [address], [place], [address], 01/01/2024 10:36:40 01/01/20 24 01/01/2024 urina lysis , dipst ick KETONES Negati ve Not Available [facility] [address], [place], [address], 01/01/2024 10:36:40 01/01/20 24 01/01/2024 urina lysis , dipst ick PROTEIN Trace (10 mg/dL) Not Available [facility] [address], [place], [address], 01/01/2024 10:36:40 01/01/20 24 01/01/2024 urina lysis , dipst ick NITRITES Negati ve Not Available [facility] [address], [place], [address], 01/01/2024 10:36:40 01/01/20 24 01/01/2024 urina lysis , dipst ick GLUCOSE Negati ve Not Available [facility] [address], [place], [address], 01/01/2024 10:36:40 01/01/20 24 01/01/2024 urina lysis , dipst ick p.H. 6.0 Not Available [facility] [address], [place], [address], 01/01/2024 10:36:40 01/01/20 24 01/01/2024 urina lysis , dipst ick S.G. (Specific Commerce) 1.015 Not Available [facility] [address], [place], [address], 01/01/2024 10:36:40 01/01/20 24 01/01/2024 urina lysis , dipst ick LEUKOCYTES Trace (10 WBC/uL ) Not Available [facility] [address], [place], [address], 01/01/2024 10:36:40 12/27/19 24 11/07/2023 CT, urogr am No observ ation record ed. [email or web address] Not Available 2023 12:29:01 Result Notes None recorded. Procedures Surgical History Date Name Laterality Status Provider Name and Address Organization Details Recorded Time 01/01/20 CystoscopyFemale completed Ankita Hernandes MD [address] [place] [address],[address], [address], [facility] 01/01/2024 11:35:58 01/01/20 24 [facility]24 10:37:06 01/01/20 24 Bladder Scan completed [facility] 01/01/2024 11:23:46 Imaging Results Imaging [...] Updated DateTime 01/01/2024 152.4 cm 24.2 kg/m2 [address] [facility] 01/01/2024 11:08:38 Social History Question Answer Notes LastModified by Organizat ion Details LastModified Time Tobacco Smoking Status Never Smoker Willis berry [facility] 01/01/2024 11:11:33 What Is Your Level Of Alcohol Consumption? None [email or web address] Information not available 01/01/2024 What Was The Date Of Your Most Recent Tobacco Screening? 01/01/2024 [email or web address] Information not available 01/01/2024 Sex: Unknown Functional Status None recorded. Mental Status None recorded. Family History Nothing Reported. Medical History Condition Response Diabetes N Sexually Transmitted Infection N Other N Bleeding Disorder N High Blood Pressure Y Kidney Stones Y Cancer N Lung Disease N Depression N High Cholesterol Y GERD/Acid Reflux N Heart Disease Y Gynecological HistoryNo gynecological history recorded. Obstetrics History GPAL:G 0 P 0 0 0 0 Immunizations Vaccine Type Date Status Provider Name and Address Organization Details Recorded Time Influenza, MDCK, quadrivalent, PF 01/29/2019 completed Willis berry [facility] 01/01/2024 11:07:13 zoster recombinant 06/25/2019 completed Willis Finc h null, [facility] 01/01/2024 11:07:13 zoster recombinant 01/29/2019 completed Willis Finc h null, [facility] 01/01/2024 11:07:13 Influenza, adjuvanted, quadrivalent, PF 01/16/2020 completed Willis Scherer null, [facility] 01/01/2024 11:07:13 Influenza, adjuvanted, quadrivalent, PF 01/19/2021 completed Willis Scherer null, [facility] 01/01/2024 11:07:13 Influenza, adjuvanted, quadrivalent, PF 01/25/2022 completed Willis Scherer null, [facility] 01/01/2024 11:07:13 Influenza, adjuvanted, quadrivalent, PF 02/02/2023 completed Willis Scherer null, [facility] 01/01/2024 11:07:13 COVID-19, mRNA, LNP-S, PF, 100 mcg/0.5mL dose or 50 mcg/0.25mL dose 07/01/2020 completed Willis Scherer null, [facility] 01/01/2024 11:07:13 COVID-19, mRNA, LNP-S, PF, 100 mcg/0.5mL dose or 50 mcg/0.25mL dose 07/29/2020 completed Willis Scherer null, [facility] 01/01/2024 11:07:13 COVID-19, mRNA, LNP-S, PF, 100 mcg/0.5mL dose or 50 mcg/0.25mL dose 03/09/2021 completed Willis Scherer null, [facility] 01/01/2024 11:07:13 COVID-19, mRNA, LNP-S, bivalent, PF, 50 mcg/0.5 mL or 25mcg/0.25 mL dose 08/14/2022 completed Willis Scherer null, [facility] 01/01/2024 11:07:13 COVID-19, mRNA, LNP-S, bivalent, PF, 50 mcg/0.5 mL or 25mcg/0.25 mL dose 01/25/2022 completed Willis Scherer null, [facility] 01/01/2024 11:07:13 COVID-19, mRNA, LNP-S, PF, 50 mcg/0.5 mL 02/12/2023 completed Willis Scherer null, [facility] 01/01/2024 11:07:13 pneumococcal polysaccharide PPV23 11/29/2016 completed Willis Scherer null, [facility] 01/01/2024 11:07:13 Tdap 08/14/2022 completed Willis Scherer null, [facility] 01/01/2024 11:07:13 Tdap 11/08/2011 completed Willis Scherer null, [facility] 01/01/2024 11:07:13 Pneumococcal conjugate PCV 13 11/23/2015 completed Willis Scherer null, [facility] 01/01/2024 11:07:14 zoster live 11/01/2010 completed Willis Scherer null, [facility] 01/01/2024 11:07:14 Influenza, high-dose, trivalent, PF 05/17/2016 completed Willis Scherer null, [facility] 01/01/2024 11:07:14 Influenza, high-dose, trivalent, PF 03/05/2018 completed Willis Scherer null, [facility] 01/01/2024 11:07:14 Influenza, high-dose, trivalent, PF 03/16/2017 completed Willis Scherer null, [facility] 01/01/2024 11:07:14 Influenza, split virus, trivalent, preservative 02/07/2011 completed Willis Scherer null, [facility] 01/01/2024 11:07:14 Influenza, split virus, trivalent, preservative 02/08/2010 completed Willis Scherer null, [facility] 01/01/2024 11:07:14 Influenza, split virus, trivalent, preservative 02/22/2012 completed Willis Scherer null, [facility] 01/01/2024 11:07:14 Td (adult), 2 Lf tetanus toxoid, preservative free, adsorbed 04/29/2003 completed Willis Scherer null, [facility] 01/01/2024 11:07:14 Influenza, split virus, quadrivalent, PF 01/30/2013 completed Willis Fajardoyulia berry [facility] 01/01/2024 11:07:14 Past Encounters Encounter ID Performer Location Encounter Start Date Encounter Closed Date Diagnosis/Indication Diagnosis SNOMED-CT Code Diagnosis ICD10 Code [id number] Ankita Hernandes MD [facility] [address] [place] [address] 01/01/2024 10:35:14 01/02/2024 12:55:58 Urinary tract infectious disease 75531426 N39.0 Health Concerns Section Related Observation LastModified by Organization Detai ls LastModified Time None Recorded Concern Status LastModified by Organization Details LastModified Time None Recorded Advance Directives Directive None Recorded Payers Encounter Date Sequence Insurance Name Policy Number Policy Enriquez Covered Member ID Enriquez Member ID Guarantor Name 01/01/2024 1 [employer] [employer] [place] COST [id number] Liudmila Dudley [id number] Liudmila Dudley Notes Date Note Type Note [...] with couple of ulcers. Ankita Hernandes MD [address], [place], [address], [facility] 01/01/2024 11:36:18 OBGyn Episode No OBEpisode recorded.
[2024-02-04] MEDS: OXYCODONE (CR) 10 MG TAB.ER.12H PO (07:21)
[2024-02-04] MEDS: LACTATED RINGERS 1000 ML 1,000 ML 100 ML IV (07:25)
[2024-02-04] MEDS: CEFAZOLIN 2 GM in 0.9 % SODIUM CHLORIDE Mini-bag 100 ML IVPB (08:45)
[2024-02-04] MEDS: ACETAMINOPHEN 500 MG TABLET 1000 MG PO ×3 (08:49→21:32)
[2024-02-04] MEDS: MIDAZOLAM HCL 1 MG/ML inj IVP (08:50)
[2024-02-04] MEDS: fentaNYL 100 MCG/2 ML inj IVP (08:50)
[2024-02-04] MEDS: TRANEXAMIC ACID 100 MG/ML INJ 1000 MG IV (08:51)
--- NOTE | 2024-02-04 08:54 | W.PM.H&PU ---
History & Physical Update History & Physical Update H&P Reviewed and patient assessed: No changes noted
--- NOTE | 2024-02-04 08:57 | SUR.PREOP ---
TIME?OUT:?0848 PT/RN/MDA?VERIFICATION?OF?SURGICAL?SITE,?PROCEDURE,?AND?CONSENT OBTAINED?PRIOR?TO?INVASIVE?PROCEDURE.
--- NOTE | 2024-02-04 10:24 | W.PM.NB ---
Nerve Block Nerve Block Time Seen by Provider: 08:50 Date Seen: 02/04/24 Type of block requested by surgeon for post-operative analgesia: adductor canal Side: right Time out performed: Yes Verification of patient name: Yes Verification of date of : Yes Site marking: site marked Name of person performing procedure: Lv Continuous monitoring Was continuous monitoring of O2 sat, B/P, quality assurance monitor chassis, recorded every 15 minutes?: Yes Procedure Checklist: sterile prep, needles and gloves Ultrasound guided. Images saved: Yes Medications given in 5ml increments after negative aspiration: Ropivicaine %: 0.5 mL: 20 Needle gauge: 20 Precedex (mcg): 25 Patient tolerated procedure well: Yes Additional comments: Needle noted adjacent to nerve Block Charges Block Charge (with Pro Fee): Femoral Nerve Use of Ultrasound Machine for Block: Yes- US Guidance/pain block
--- NOTE | 2024-02-04 10:25 | P.NB_ITS ---
Nerve Block Nerve Block Time Seen by Provider: 08:50 Date Seen: 02/04/24 Type of block requested by surgeon for post-operative analgesia: geniculars Time out performed: Yes Verification of patient name: Yes Verification of date of : Yes Site marking: site marked Name of person performing procedure: Lv Continuous monitoring Was continuous monitoring of O2 sat, B/P, residential monitor, recorded every 15 minutes?: Yes Procedure Checklist: sterile prep, needles and gloves Medications given in 5ml increments after negative aspiration: Ropivicaine %: 0.5 mL: 9 Needle gauge: 25 Patient tolerated procedure well: Yes Block Charges Block Charge (with Pro Fee): Genicular Nerve Block Use of Ultrasound Machine for Block: No
--- NOTE | 2024-02-04 10:25 | W.ANESCHARGE ---
Anesthesia Charges Start Date/Time Anesthesia Start Date: 02/04/24 Anesthesia Start Time: 08:56 Stop Date/Time Anesthesia Stop Date: 02/04/24 Anesthesia Stop Time: 11:25 Summary Extremes of Age - Over 70 or under 1: MDA
--- NOTE | 2024-02-04 10:35 | PM.ORPRC ---
Procedure Note Date of procedure: 02/04/24 Procedure: PREOPERATIVE DIAGNOSIS: 1. Right knee osteoarthritis, secondary, severe POSTOPERATIVE DIAGNOSIS: 1. Right knee osteoarthritis, secondary, severe PROCEDURE: 1. Right total knee arthroplasty - subvastus (+ TruMatch femoral guide) SURGEON: Sulaiman Zavala MD. USED CAR LOT ATTENDANT: Homar Sanchez PA-C - Of note, a skilled administrative support assistant was critical for this case to aid in patient positioning, tissue retraction, limb manipulation/positioning, and closure. ANESTHESIA: Spinal anesthetic IMPLANTS: DePuy J&J all cemented TKA - Attune PS femur size 5 narrow, size 3 tibia, 7 mm poly spacer, 35 mm patella TOURNIQUET: 90 min at 300 torr EBL: 50 ml COMPLICATIONS: None evident INDICATIONS: The patient is a pleasant 73-year-old female who has experienced severe right knee pain and difficulty bearing weight. Workup included x-rays which revealed severe osteoarthrosis in the knee as well as a deformity of the mid femur secondary to a previous femur fracture ORIF in the remote past. Given the deformity, the dysfunction, and the pain, as well as the failure of nonoperative management, recommendation was made for surgery. FINDINGS: Full-thickness chondral loss diffusely throughout the medial and patellofemoral compartment to a lesser degree lateral compartment. Tricompartmental osteophytosis. Degenerative meniscus pathology. Moderate effusion upon entering the joint. DESCRIPTION OF PROCEDURE: Following a thorough discussion of risks, benefits, and alternatives consent was obtained and the right knee was marked. The patient was brought to the operating room and placed supine on the operating table. Induction of anesthesia was undertaken. 1 g IV Ancef and 1 g tranexamic acid was administered within 1 hr of incision preoperatively. Proper time-out was performed identifying proper patient, site, procedure. The operative extremity was prepped and draped in the appropriate sterile fashion using ChloraPrep after the patient was positioned supine with all bony prominences well padded. A longitudinal, anterior, midline skin incision was made starting approximately 3cm proximal to the superior pole of the patella and advanced distal to the tibial tubercle. A subvastus approach was utilized. A medial subperiosteal sleeve was created with knife, maharaj elevator and curved osteotome. The retropatellar fatpad was resected and the synovium in the suprapatellar pouch excised to visualize the anterior femoral cortex. Femoral preparation was performed via TruMatch patient specific jig secondary to the previous remote femur fracture ORIF and malunion. The TruMatch distal cutting guide was placed and cut accordingly. The remaining cuts were then made with the 4 in 1 cutting block sized to a 5 consistent with the preoperative plan. The box cut was then created and the trial implant inserted to confirm appropriate fit. We turned our attention to the proximal tibia. Extramedullary guide was utilized for cutting with the goal of being 90 degree cut from the mechanical axis of the tibia in the varus/valgus plane utilizing tibial crest as the primary alignment. Initially a 2 mm resection was performed from the medial tibial plateau. Ultimately, balancing was achieved in both flexion and extension in both varus and valgus. The knee was able to achieve full extension as well comfortably. The patella was initially measured and found have a thickness of 20 mm. It was resected back to approximately 14 mm. It was sized to be a best fit with as noted above. This was drilled, trial placed. All trials were placed and found to have an excellent stability and balance. At this stage, trial implants were removed, the knee was thoroughly irrigated with normal saline, and the cement was mixed. After irrigation, the knee was thoroughly dried, and cement placed, with the real tibial and femoral implants placed along with the patella. Trial poly spacer was placed and confirmed to have excellent range of motion and full extension, and the real poly spacer opened and inserted. All extra cement was removed, and a 3 min Betadine soak performed. Finally, a final irrigation round with normal saline was performed. Closure performed with 0 Vicryl and #0 Stratafix for the quad tendon/retinaculum. 2-0 Vicryl for the subcutaneous and 4-0 Stratafix for subcuticular closure. Dressings were applied and the patient was awoken from anesthesia after the tourniquet deflated and transferred the PACU in stable condition. A skilled administrative support assistant was critical for this case to aid in patient positioning, tissue retraction, bone exposure, limb manipulation/positioning, patient safety, and closure. PLAN: 1. Weight bear as tolerated operative extremity. 2. 23 hr perioperative antibiotics. 3. Ice. 4. PT/OT consults for ambulation assistance/mobility education. 5. Social work consult for discharge planning. 6. DVT prophylaxis with at SCDs and aspirin twice daily.
--- NOTE | 2024-02-04 10:40 | CRLHL7_ITS ---
For Patients: As a result of the Cures Act, medical imaging exams and procedure reports are released immediately into your electronic medical record. You may view this report before your referring provider. If you have questions, please contact your health care provider. Indication: Postop Technique: Two views right knee Findings/Impression: Hardware from a right total knee arthroplasty is in satisfactory position. Chronic fracture of the femoral diaphysis again noted, similar to 05/21/2020. Dictated by Philip Aviles MD @ 02/04/2024 12:52:58 PM (Electronically Signed)
--- NOTE | 2024-02-04 11:30 | W.ANESCHARGE ---
Anesthesia Charges Start Date/Time Anesthesia Start Date: 02/04/24 Anesthesia Start Time: 08:56 Stop Date/Time Anesthesia Stop Date: 02/04/24 Anesthesia Stop Time: 11:25
[2024-02-04] MEDS: fentaNYL 100 MCG/2 ML inj 50 MCG IVP ×2 (11:35→11:52)
[2024-02-04] MEDS: HYDROmorphone 0.5 mg/0.5 ml inj IVP ×2 (12:19→14:56)
[2024-02-04] MEDS: ONDANSETRON 2 MG/ML inj 4 MG IVP (12:27)
[2024-02-04] MEDS: PROCHLORPERAZINE 5 MG/ML VIAL 10 MG IV (14:26)
--- NOTE | 2024-02-04 15:31 | PC.NURSE ---
Pt arrived to floor at 1200 from surgery. O2 stats 93-99 on 2 L of o2. Pain rated 9/10, prn Dilaudid given. Nausea was present, prn Zofran given. Pt requested to be up to commode, during transfer pt had 50 cc of emesis out, reported feeling dizzy. returned to bed. obtained and administered Compazine. Pt up to commode again without difficulty.
--- NOTE | 2024-02-04 16:00 | P.IMCN_ITS ---
Date of Consult Consult date: 02/04/24 Primary Care Provider: Agnes Tejeda MD Consult Narrative Narrative: Liudmila Dudley is a 73 year old female w/ past medical history of HTN, HLD, GERD, chronic cystitis & bilateral knee osteoarthrosis who presents for right total knee arthroplasty today. Pt is S/P Rt TKA with estimated bl loss of ~ 50 ml, hemodynamically stable. She vomited once postop though she was on Zofran, and thus was given prochlorperazine. Patient had only a small amount of urine output postop, but she mentioned that because of her chronic cystitis this is normal, she usually has increased frequency with little amounts of urine each time. Review of Systems Status of ROS: Reports: 6 or more systems reviewed and unremarkable except as noted in History and below PFSH [facility] Medical History (Updated 02/04/24 @ 16:14 by Arpita Nogueira MD) Gastroesophageal reflux disease ?K21.9 - Gastro-esophageal reflux disease without esophagitis (ICD-10) Hyperlipidemia ?E78.5 - Hyperlipidemia, unspecified (ICD-10) GERD with esophagitis ?K21.00 - Gastro-esophageal reflux disease with esophagitis, without bleeding (ICD-10) Hypertension ?I10 - Essential (primary) hypertension (ICD-10) Surgical History (Updated 02/04/24 @ 16:08 by Arpita Nogueira MD) Previous section ?Z98.891 - History of uterine scar from previous surgery (ICD-10) History of open reduction and internal fixation (ORIF) procedure (~1975) ?Z98.890 - Other specified postprocedural states (ICD-10) S/P ORIF (open reduction internal fixation) fracture ?Z98.890 - Other specified postprocedural states (ICD-10) ?Z87.81 - Personal history of (healed) traumatic fracture (ICD-10) Social History Narrative: -Jonnie What is your current living situation?: I presently have a place to live Problems where you live: no known problems In the past 12 months, utilities in danger of being shut off: no In past 12 months, lack of transportation kept you from medical appts, meetings, work, or getting things needed for daily living: no In the past 12 mos, have been you worried that your food would run out before you had money to buy more?: never true In the past 12 mos, the food you bought just didn't last and you didn't have money to buy more?: never true Highest level of school completed/degree received: Bachelor's degree Smoking Status: Never smoker Do you use any of these nicotine containing products: None Second hand tobacco smoke exposure: No How often do you have a drink containing alcohol: never How often do you have six or more drinks on one occasion: Never AUDIT-C Alcohol total score: 0 Non-prescribed substance use: denies use How often does anyone, including family, friends and others, physically hurt you : never How often does anyone, including family, friends and others, insult or talk down to you: never How often does anyone, including family, friends and others, threaten you with h arm: never How often does anyone, including family, friends and others, scream or curse at you: never service: No Meds Home Medications and Allergies Home Medications ?Medication ?Instructions ?Recorded ?Confirmed ?Type atorvastatin 20 mg tablet 20 mg PO QDAY 04/27/22 02/04/24 History cholecalciferol (vitamin D3) PO 03/09/23 10/06/23 History multivitamin 1 tab PO QAM 03/09/23 02/04/24 History alendronate 70 mg tablet 70 mg PO .weekly 09/11/23 02/04/24 History aspirin 81 mg tablet,delayed 81 mg PO QDAY 09/11/23 02/04/24 History release lisinopril 20 mg tablet 20 mg PO DAILY 09/11/23 02/04/24 History omeprazole 40 mg capsule,delayed 40 mg PO DAILY 09/11/23 02/04/24 History release desonide 0.05 % topical cream 1 applic topical BID 10/06/23 02/04/24 History fluocinonide 0.05 % topical 1 applic topical DAILY 10/06/23 02/04/24 History solution [id number] 1 tab PO DAILY 10/06/23 02/04/24 History fumarate 18 mg-folic acid 400 mcg tablet (One-A-Day Women's Complete) omeprazole 40 mg capsule,delayed 40 mg PO DAILY 10/06/23 02/04/24 History release Allergies Allergy/AdvReac Type Severity Reaction Status Date / Time No Known Drug Allergies Allergy Verified 02/04/24 07:30 Exam Narrative: Exam Narrative: Physical exam GENERAL: Patient is sleepy postop, no acute distress. HEAD AND NECK: Atraumatic, normocephalic CARDIOVASCULAR: RRR. Normal S1, S2. No murmurs. RESPIRATORY: Clear to auscultation B/L. Good air entry B/L. No wheezes or rhonchi. GASTROINTESTINAL: Not distended, not tender to palpation. NEUROLOGY: Alert, awake, oriented X 3. Normal speech. PSYCH: Normal mood, normal affect. Const: Vital Signs, click to edit/add: Vital Signs - 24 hr 02/04/24 07:51 02/04/24 08:50 02/04/24 08:55 Temperature 98.0 F Pulse Rate 78 82 77 Respiratory Rate 16 16 16 Blood Pressure 144/90 H 144/100 H 126/87 Blood Pressure [Ri ght Arm] Pulse Oximetry 97 97 97 Oxygen Delivery Me thod Room Air Nasal Cannula Nasal Cannula Oxygen Flow Rate 2 2 02/04/24 11:22 02/04/24 11:27 02/04/24 11:32 Temperature 97.5 F L Pulse Rate 51 L 51 L 51 L Respiratory Rate 14 16 16 Blood Pressure 100/65 107/65 107/65 Blood Pressure [Ri ght Arm] Pulse Oximetry 97 96 96 Oxygen Delivery Me thod Nasal Cannula Nasal Cannula Nasal Cannula Oxygen Flow Rate 4 4 4 02/04/24 11:35 02/04/24 11:40 02/04/24 11:45 Temperature 97.6 F Pulse Rate 57 L 57 L 57 L Respiratory Rate 16 16 16 Blood Pressure 115/69 114/71 116/67 Blood Pressure [Ri ght Arm] Pulse Oximetry 95 93 95 Oxygen Delivery Me thod Nasal Cannula Nasal Cannula Nasal Cannula Oxygen Flow Rate 4 3 3 02/04/24 11:50 02/04/24 11:55 02/04/24 11:59 Temperature 97.6 F 97 F L Pulse Rate 55 L 64 Respiratory Rate 16 16 16 Blood Pressure 120/73 Blood Pressure [Ri ght Arm] 107/70 Pulse Oximetry 95 95 93 Oxygen Delivery Me thod Nasal Cannula Nasal Cannula Nasal Cannula Oxygen Flow Rate 2 2 2 02/04/24 12:00 02/04/24 12:15 02/04/24 12:30 Temperature 97.0 F L 97.1 F L 96.0 F L Pulse Rate 64 54 L 60 Respiratory Rate 16 16 16 Blood Pressure 107/70 118/73 114/87 Blood Pressure [Ri ght Arm] Pulse Oximetry 93 96 97 Oxygen Delivery Me thod Nasal Cannula Nasal Cannula Nasal Cannula Oxygen Flow Rate 2 2 2 02/04/24 12:45 02/04/24 13:00 02/04/24 13:30 Temperature 96.2 F L 96.4 F L 96.6 F L Pulse Rate 54 L 57 L 52 L Respiratory Rate 16 16 16 Blood Pressure 117/64 109/86 105/71 Blood Pressure [Ri ght Arm] Pulse Oximetry 99 96 97 Oxygen Delivery Me thod Nasal Cannula Nasal Cannula Nasal Cannula Oxygen Flow Rate 2 1.5 1.5 02/04/24 14:00 02/04/24 15:00 Temperature 96.6 F L 96.8 F L Pulse Rate 68 85 Respiratory Rate 18 18 Blood Pressure 121/76 136/91 H Blood Pressure [Ri ght Arm] Pulse Oximetry 94 96 Oxygen Delivery Me thod Nasal Cannula Nasal Cannula Oxygen Flow Rate 2 2 Assessment and Plan Assessment and plan (1) S/P TKR (total knee replacement): Problem comment: -S/P Rt TKA with estimated bl loss of ~ 50 ml, hemodynamically stable. No complications documented perioperatively. -Start early ambulation postop with Wt bear as tolerated. -SCDs for DVT prophylaxis and start aspirin 81 mg twice daily tonight. -Resume home meds -PT/OT consults for evaluation and treatment. -Social work consult for D/C evaluation and help. Status: Acute (2) Osteoarthritis of right knee: Problem comment: severe, [id number] Status: Acute (3) Hypertension: Problem comment: -will resume lisinopril 20 mg tomorrow. Status: Acute (4) Hyperlipidemia: Problem comment: -will resume atorvastatin 20 mg tomorrow Status: Acute (5) Chronic cystitis: Problem comment: -status post cystoscopy -history of recurrent UTIs Status: Acute (6) Gastroesophageal reflux disease: Status: Acute Assessment and Plan: -will resume omeprazole 40 mg (7) Osteoarthritis of left knee: Status: Acute Plan as above Total Time Spent Total Time Spent: Time spent: Today I spent 75 minutes seeing the patient, discussing the patient with ER staff, reviewing Expanse and EPIC notes/diagnostics, discussing the care plan with our care time that includes social work, PT/OT, pharmacy and documenting my impressions and plan in the medical record.
[2024-02-04] MEDS: CEFAZOLIN 1 GM in 0.9 % SODIUM CHLORIDE Mini-bag 100 ML IVPB ×2 (16:08→23:54)
[2024-02-04] MEDS: OXYCODONE 5 MG TABLET PO ×2 (20:28→23:54)
[2024-02-04] MEDS: ASPIRIN 81 MG TABLET EC PO (20:28)
[2024-02-04] MEDS: SENNOSIDES 1 TAB TABLET 2 TAB PO (20:29)
--- NOTE | 2024-02-04 22:05 | PC.NURSE ---
Pt A & O x4. VSS. Ambulates with A1, walker, and gait belt to the bathroom. IV in left hand intact and saline locked. Tolerated a regular diet. Ate approx. 50% of dinner with no issues. Rates pain at a 5/10. PRN oxycodone given at 2030.
[2024-02-05 03:00] VITALS: BP 116/68; PULSE 82; RESP 16; TEMP 36.2; O2SAT 95
[2024-02-05] MEDS: ACETAMINOPHEN 500 MG TABLET 1000 MG PO (04:18)
[2024-02-05] MEDS: OXYCODONE 5 MG TABLET PO (04:18)
[2024-02-05 06:22] LABS: Basophils Percent Auto 0.1 % (0.0-3.0); Eosinophils Percent Auto 0.1 % (0.0-7.0); Hematocrit 36.1 % (33.0-51.0); Immature Granulocytes Pct Auto 0.1 %; Lymphocytes Percent Auto 5.6 % (20-44); Mean Corpuscular HGB Conc 33 gm/dL (32-36); Mean Corpuscular Hemoglobin 30 pg (26-34); Mean Corpuscular Volume 89 fL (80-100); Monocytes Percent Auto 5.9 % (0.0-11.0); Neutrophils Percent Auto 88.2 % (42.0-72.0); Platelet Count* 255 K/uL (140-440); RDW Coefficient of Variation % 12.5 % (11.5-15.5); Red Blood Count 4.05 m/uL (4.00-5.20)
[2024-02-05 06:24] LABS: Slide Review Reflex No
--- NOTE | 2024-02-05 06:24 | PC.NURSE ---
SHIFT NOTE : Pt A&O. Up at least hourly to urinate, pt states that she urinates this frequently at home too, MD requested that a bladder scan be done, PVR was 68ml. Pt otherwise reports adequate pain control from PRN Oxycodone and scheduled Tylenol. Ice pack to knee continuously. VSS on RA. Up SBA with a walker. IS encouraged.
[2024-02-05 06:31] LABS: Potassium* 4.3 mmol/L (3.6-5.1); Sodium* 125 mmol/L (135-149)
[2024-02-05 06:34] LABS: Creatinine* 0.7 mg/dL (0.5-1.5); Est. Creatinine Clearance* 44.29; Estimated Glomerular Filt Rate 91 ml/min
[2024-02-05 06:35] LABS: Blood Urea Nitrogen* 17 mg/dL (7-30)
[2024-02-05 07:56] VITALS: BP 115/72; PULSE 78; RESP 16; TEMP 36.9; O2SAT 95; O2SAT 98
[2024-02-05] MEDS: CEFAZOLIN 1 GM in 0.9 % SODIUM CHLORIDE Mini-bag 100 ML IVPB (08:13)
[2024-02-05] MEDS: ATORVASTATIN 10 MG TABLET 20 MG PO (08:13)
[2024-02-05] MEDS: ASPIRIN 81 MG TABLET EC PO (08:14)
[2024-02-05] MEDS: OMEPRAZOLE 20 MG CAPSULE DR 40 MG PO (08:14)
[2024-02-05] MEDS: SENNOSIDES 1 TAB TABLET 2 TAB PO (08:14)
--- NOTE | 2024-02-05 08:49 | PM.ORPN ---
Subjective Subjective Date Seen: 02/05/24 Principal diagnosis: Status postop day 1 right total knee arthroplasty Interval history: Patient reports doing well. No acute events over night. Some nausea and vomiting initially postop, which has since resolved without issues today. Pain managed with scheduled and PRN medications, ice. Reports some knee stiffness and some mild lightheadedness when getting out of bed. DVT prophylaxis: 81 mg aspirin by mouth twice daily, SCDs, walking. Denies fevers, chills, aches, N/V, CP, SOB/WATTERS. Ortho Exam Narrative Exam Narrative: -Patient appears comfortable; no apparent acute distress -Alert and oriented times 3 -Operative knee mildly swollen; soft tissues supple; no ecchymosis; no erythematous streaking Warmth appropriate -Surgical dressing clean, dry, intact; no drainage -Bilateral calfs soft; no significant swelling, edema, tenderness, erythema, discoloration, warmth, or palpable cords -2+ DP/PT pulses, intact dermatomes and myotomes distally (5/5 strength) Const Vital Signs, click to edit/add: Vital Signs - 24 hr 02/04/24 08:50 02/04/24 08:55 02/04/24 11:22 Temperature 97.5 F L Pulse Rate 82 77 51 L Pulse Rate [Pulse Oximeter] Respiratory Rate 16 16 14 Blood Pressure 144/100 H 126/87 100/65 Blood Pressure [Right Arm] Pulse Oximetry 97 97 97 Oxygen Delivery Method Nasal Cannula Nasal Cannula Nasal Cannula Oxygen Flow Rate 2 2 4 02/04/24 11:27 02/04/24 11:32 02/04/24 11:35 Temperature Pulse Rate 51 L 51 L 57 L Pulse Rate [Pulse Oximeter] Respiratory Rate 16 16 16 Blood Pressure 107/65 107/65 115/69 Blood Pressure [Right Arm] Pulse Oximetry 96 96 95 Oxygen Delivery Method Nasal Cannula Nasal Cannula Nasal Cannula Oxygen Flow Rate 4 4 4 02/04/24 11:40 02/04/24 11:45 02/04/24 11:50 Temperature 97.6 F Pulse Rate 57 L 57 L 55 L Pulse Rate [Pulse Oximeter] Respiratory Rate 16 16 16 Blood Pressure 114/71 116/67 Blood Pressure [Right Arm] Pulse Oximetry 93 95 95 Oxygen Delivery Method Nasal Cannula Nasal Cannula Nasal Cannula Oxygen Flow Rate 3 3 2 02/04/24 11:55 02/04/24 11:59 02/04/24 12:00 Temperature 97.6 F 97 F L 97.0 F L Pulse Rate 64 64 Pulse Rate [Pulse Oximeter] Respiratory Rate 16 16 16 Blood Pressure 120/73 107/70 Blood Pressure [Right Arm] 107/70 Pulse Oximetry 95 93 93 Oxygen Delivery Method Nasal Cannula Nasal Cannula Nasal Cannula Oxygen Flow Rate 2 2 2 02/04/24 12:15 02/04/24 12:30 02/04/24 12:45 Temperature 97.1 F L 96.0 F L 96.2 F L Pulse Rate 54 L 60 54 L Pulse Rate [Pulse Oximeter] Respiratory Rate 16 16 16 Blood Pressure 118/73 114/87 117/64 Blood Pressure [Right Arm] Pulse Oximetry 96 97 99 Oxygen Delivery Method Nasal Cannula Nasal Cannula Nasal Cannula Oxygen Flow Rate 2 2 2 02/04/24 13:00 02/04/24 13:30 02/04/24 14:00 Temperature 96.4 F L 96.6 F L 96.6 F L Pulse Rate 57 L 52 L 68 Pulse Rate [Pulse Oximeter] Respiratory Rate 16 16 18 Blood Pressure 109/86 105/71 121/76 Blood Pressure [Right Arm] Pulse Oximetry 96 97 94 Oxygen Delivery Method Nasal Cannula Nasal Cannula Nasal Cannula Oxygen Flow Rate 1.5 1.5 2 02/04/24 15:00 02/04/24 15:00 02/04/24 15:00 Temperature 96.8 F L Pulse Rate 85 Pulse Rate [Pulse Oximeter] Respiratory Rate 18 18 Blood Pressure 136/91 H Blood Pressure [Right Arm] Pulse Oximetry 96 92 92 Oxygen Delivery Method Nasal Cannula Nasal Cannula Oxygen Flow Rate 2 2 02/04/24 16:00 02/04/24 17:00 02/04/24 18:00 Temperature 97.4 F L 97.4 F L 97.4 F L Pulse Rate 89 72 72 Pulse Rate [Pulse Oximeter] Respiratory Rate 18 18 18 Blood Pressure 98/60 93/71 98/71 Blood Pressure [Right Arm] Pulse Oximetry 92 97 97 Oxygen Delivery Method Nasal Cannula Nasal Cannula Nasal Cannula Oxygen Flow Rate 2 2 2 02/04/24 19:00 02/04/24 23:00 02/04/24 23:00 Temperature 97.5 F L Pulse Rate Pulse Rate [Pulse Oximeter] 75 Respiratory Rate 16 18 Blood Pressure Blood Pressure [Right Arm] 112/72 Pulse Oximetry 95 95 Oxygen Delivery Method Room Air Oxygen Flow Rate 02/04/24 23:00 02/04/24 23:00 02/05/24 03:00 Temperature 97.8 F 97.2 F L Pulse Rate Pulse Rate [Pulse Oximeter] 84 82 Respiratory Rate 18 18 16 Blood Pressure Blood Pressure [Right Arm] 114/68 116/68 Pulse Oximetry 95 95 95 Oxygen Delivery Method Room Air Room Air Room Air Oxygen Flow Rate 02/05/24 07:56 02/05/24 07:56 Temperature 98.4 F Pulse Rate Pulse Rate [Pulse Oximeter] 78 Respiratory Rate 16 16 Blood Pressure Blood Pressure [Right Arm] 115/72 Pulse Oximetry 98 95 Oxygen Delivery Method Room Air Room Air Nasal Cannula Oxygen Flow Rate Assessment and Plan Assessment and plan (1) S/P TKR (total knee replacement): Problem details: -S/P Rt TKA with estimated bl loss of ~ 50 ml, hemodynamically stable. No complications documented perioperatively. -Start early ambulation postop with Wt bear as tolerated. -SCDs for DVT prophylaxis and start aspirin 81 mg twice daily tonight. -Resume home meds -PT/OT consults for evaluation and treatment. -Social work consult for D/C evaluation and help. Status: Acute (2) Osteoarthritis of right knee: Problem details: severe, [id number] Status: Acute (3) Hypertension: Problem details: -will resume lisinopril 20 mg tomorrow. Status: Acute (4) Hyperlipidemia: Problem details: -will resume atorvastatin 20 mg tomorrow Status: Acute (5) Chronic cystitis: Problem details: -status post cystoscopy -history of recurrent UTIs Status: Acute (6) Gastroesophageal reflux disease: Status: Acute (7) Osteoarthritis of left knee: Status: Acute Plan - Complete 23 hour perioperative antibiotics. - PT/OT consult for education and assistance. - Social work consult for discharge planning - Prescribed analgesics as needed - DVT prophylaxis: 81 mg aspirin by mouth twice daily, walking, and SCDs - Anticipation is for discharge to home with family/friends today 02/05/2024 if the patient remains medically stable, pain is controlled, and they are safe with mobilization.
--- NOTE | 2024-02-05 11:55 | PC.NURSE ---
Discharge: The patient discharged home with her and daughter. All post op teaching was given, questions were answered. Dressing to R knee is CDI. Ice packs sent with the patient as well as all of her belongings. Elizabeth RUBY BSN
== END 2024-02-05 11:08 | disposition home or self-care (01) ==
LOC: OR 07:18 → MEDSURG 07:20
PROVIDERS: PCP Family Medicine; Visit Provider Orthopaedic Surgery Sports Medicine
PROC: (CPT 27447; principal; 2024-02-04 09:00)
DX: M17.5 Other unilateral secondary osteoarthritis of knee (principal); M17.0 Bilateral primary osteoarthritis of knee; G89.18 Other acute postprocedural pain; M25.761 Osteophyte, right knee; I10 Essential (primary) hypertension; E78.5 Hyperlipidemia, unspecified; K21.00 Gastro-esophageal reflux disease with esophagitis, without bleeding; N30.20 Other chronic cystitis without hematuria; Z87.440 Personal history of urinary (tract) infections; R11.2 Nausea with vomiting, unspecified; R42 Dizziness and giddiness
CPT/HCPCS: 27447; 01402; 36415; 51798; 64447; 73560; 76942; 82565; 84132; 84295; 84520; 85025; 94761; 97110; 97116; 97162; 97165; 97530; 97535; 99100; A9270; C1776; J0690; J0780; J1171; J2250; J2405; J2704; J2795; J3010; J7120

== ENCOUNTER 2024-04-17 14:30 | Outpatient (RCR) | payer MEDICARE, BC, SELFPAY ==
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
== END 2024-06-16 08:34 | disposition home or self-care (01) ==
PROVIDERS: PCP Family Medicine; Visit Provider Orthopaedic Surgery Sports Medicine
DX: M17.11 Unilateral primary osteoarthritis, right knee (principal); Z96.651 Presence of right artificial knee joint; Z51.89 Encounter for other specified aftercare
CPT/HCPCS: 97110; 97140; 97161; 97164

== ENCOUNTER 2024-07-04 13:45 | Outpatient (CLI) | payer MEDICARE, BC, SELFPAY | END 2024-07-04 13:46 | disposition home or self-care (01) | LOC: NFLDREF 07-08 05:58 | PROVIDERS: PCP Family Medicine; Referring Provider Family Medicine | DX: N30.01 Acute cystitis with hematuria (principal); N39.0 Urinary tract infection, site not specified | CPT/HCPCS: 87086 ==

== ENCOUNTER 2024-09-16 10:58 | Outpatient (CLI) | payer MEDICARE, BC, SELFPAY | END 2024-09-16 10:59 | disposition home or self-care (01) | LOC: NFLDREF 09-20 19:27 | PROVIDERS: PCP Family Medicine; Referring Provider Family Medicine; Visit Provider Physician Assistant | DX: N30.00 Acute cystitis without hematuria (principal); B95.2 Enterococcus as the cause of diseases classified elsewhere | CPT/HCPCS: 87086; 87186 ==

== ENCOUNTER 2024-10-01 09:00 | Outpatient (RCR) | payer MEDICARE, BC, SELFPAY ==
--- NOTE | 2024-09-09 09:25 | PT.OPEX ---
PT [place] Outpatient Eval PT [facility] Outpatient Eval Start: 09/01/24 15:52 Freq: Status: Active Protocol: Document 09/09/24 06:56 MLS (Rec: 09/09/24 09:24 MLS [id number]) E-signed By Briseyda Loaiza DPT Physical Therapy Outpatient Evaluation Insurance Information Recert Due Date 12/07/24 Insurance Name Medicare B,Blue Cross/Blue Shield Medical Diagnosis M70.52 other bursitis of knee, left knee Treating Diagnosis Pes anserinus bursitis of left knee Referring MD Dr. Campos Subjective Preferred Name Katherine Subjective Patient is a 73 year old female who presents to physical therapy with signs and symptoms consistent with left knee pes anserine bursitis. She states that she noticed it at the end of June . She states that sit swells up and she notices it when she is walking. She states that she wraps it with tape as needed. She states that she noticed it a lot when she was standing at the book fair. Aggravating factors include: walking, standing, grocery store. Alleviating factors include: wrapping and rest. Significant past medical history includes R TKA, overactive bladder and osteoporosis. Patient would like to achieve less pain in her knee through physical therapy sessions. Pain Comments Today: 2/10 on a 0-10 pain scale with 10 = extreme pain At its worst: 5/10 At its best: 0/10 Current Work Status Retired Precautions Weight Bearing Status Full Weight Bearing Therapy Limitations/Systems Review Not Limited Objective Other/Pertinent Objective GAIT/FUNCTIONAL MOBILITY Single leg stance: no pain Squat: no pain KNEE ROM Right Extension/Flexion: 0-120 Left Extension/Flexion: 0-120 HIP ROM Grossly tested WNL LLE MMT: Hip flexion: R 4/5 L 4/5 Hip abduction: R 4/5 L 4/5 Hip extension: R 4/5 L 4/5 Knee flexion: R 4/5 L 4/5 Knee extension: R 4/5 L 4/5 SPECIAL TEST -Anterior drawer: neg -Grover test: neg -Posterior Drawer: neg -Valgus Test: neg -Varus Test: neg -Joint line tenderness: -Marin test: neg -Segal Compression: neg -Hip quadrant test: neg -DANIE test: neg -FADIR test: neg -Trochanteric Bursitis Test: neg JOINT MOBILITY/PALPATION Moderate tenderness to Pes Anserine bursa TX: Access Code: [email or web address] URL: [email or web address] Date: 09/09/2024 Prepared by: Briseyda Loaiza Exercises - Supine Quad Set - 1 x daily - 7 x weekly - 3 sets - 10 reps - Active Straight Leg Raise with Quad Set - 1 x daily - 7 x weekly - 3 sets - 10 reps - Supine Heel Slides - 1 x daily - 7 x weekly - 3 sets - 10 reps - Supine Hip Adduction Isometric with Ball - 1 x daily - 7 x weekly - 3 sets - 10 reps - Supine Bridge with Mini [place] Ball Between Knees - 1 x daily - 7 x weekly - 3 sets - 10 reps - Clamshell - 1 x daily - 7 x weekly - 3 sets - 10 reps Functional Test Performed & Score 69/80 A score increase of 6 points shows a significant improvement in lower extremity function. Assessment Assessment/Impression Pt is a 73 year old female who presents with concerns of left knee pes anserine bursitis. Patient also has notable objective findings including tenderness to palpation, and decreased strength which are also likely contributing to the problem. Patient is a good candidate for skilled therapy to target deficits described above. Skilled PT intervention is necessary for use of therapeutic exercise manual therapy, neuromuscular re- education, gait training, and therapeutic activity. Functional impairments include difficulty with: standing, walking, exercising and ADLS. See appropriate sections of PT eval for complete list of goals and POC. D/C plan and criteria is for pt to achieve the goals as listed below or until max rehab potential is met. Pt was agreeable with plan of care and goals established. Primary Functional Limitations standing walking exercising ADLS Plan of Care Rehabilitation Potential Good Physical Therapy Goals Within 10-12 weeks: 1.Pt will demonstrate independence in performance of home exercise program with the use of video and/or handouts in order to optimize functional mobility and reduce risk for re-injury. 2.Pt will demonstrate consistent HEP compliance to ensure progress in reaching established goals during course of care. 3.Patient will be able to grocery shop for 30 minutes without pain. 4.Patient will report pain levels <2/10 with all activities in order to improve functional mobility at home, work and during functional leisure activities. 5.Patient is able to sleep without waking more than one time due to pain in a 6-8 hour time frame. 6.Patient will be able to walk up to one mile without pain. 7.Pt will be able to ascend/ descend 1 flight of stairs in order to perform ADLs pain free. 8.Pt will exhibit 5 pt improvement in Lower Extremity Functional Scale to demonstrate functional improvement and progress towards goals Coordination/Communication With Referral Source Treatment Plan/Direct Interventions Manual Therapy,Neuromuscular Re-ed,Therapeutic Activities, Therapeutic Exercises, Ultrasound Patient Will Be Discharged From Therapy Independently Progressing Evaluation Billing Untimed Code Treatment Minutes 30 Complexity Low Certification Information Provider Signature Required Yes Provider Signature Shows Agreement With POC & Medical Necessity Physician NPI Number Write NPI# Here Physician Comment/Change : Physician Signature & Date Requested Please Sign/Date Here
== END 2024-12-25 16:27 | disposition home or self-care (01) ==
PROVIDERS: PCP Family Medicine; Visit Provider Orthopaedic Surgery Sports Medicine
DX: M70.52 Other bursitis of knee, left knee (principal); Z51.89 Encounter for other specified aftercare; N30.10 Interstitial cystitis (chronic) without hematuria
CPT/HCPCS: 87086; 97110; 97161; 97530

== ENCOUNTER 2024-10-01 10:13 | Outpatient (CLI) | payer MEDICARE, BC, SELFPAY | END 2024-10-01 10:14 | disposition home or self-care (01) | LOC: NFLDREF 10-03 22:18 | PROVIDERS: PCP Family Medicine; Referring Provider Family Medicine | DX: R30.0 Dysuria (principal); N30.10 Interstitial cystitis (chronic) without hematuria; Z51.89 Encounter for other specified aftercare | CPT/HCPCS: 87086; 97530 ==